=== PATIENT | male | born 1970 | race Caucasian/White ===

== ENCOUNTER 2016-08-20 07:27 | Inpatient (IN) | payer OTHER ==
[2016-08-20] MEDS ORDERED: MORPHINE 2 MG/ML SYRINGE IVP STA (07:41)
[2016-08-20] MEDS ORDERED: SODIUM CHLORIDE 0.9% 1,000 ML IV ONE (07:41)
[2016-08-20] MEDS ORDERED: ONDANSETRON 4 MG/2 ML VIAL IVP STA (07:41)
[2016-08-20] MEDS ORDERED: ONDANSETRON 4 MG/2 ML VIAL ONE (07:43)
[2016-08-20] MEDS ORDERED: MORPHINE 2 MG/ML SYRINGE ONE ×2 (07:44→12:42)
[2016-08-20] MEDS ORDERED: IOPAMIDOL-300 100 ML VIAL IVP ONE (09:00)
[2016-08-20] MEDS ORDERED: ENOXAPARIN 100 MG/ML SYRINGE SUBQ STA (09:28)
[2016-08-20] MEDS ORDERED: NICOTINE 14 MG PATCH TOP STA (09:33)
[2016-08-20] MEDS ORDERED: NICOTINE 14 MG PATCH TOP ONE (09:47)
[2016-08-20] MEDS ORDERED: ENOXAPARIN 120 MG/0.8 ML SYRINGE SUBQ STA (09:49)
[2016-08-20] MEDS ORDERED: oxyCODONE 5 MG TABLET PO PRN (10:24)
[2016-08-20] MEDS ORDERED: ACETAMINOPHEN 325 MG TABLET PO PRN (10:24)
[2016-08-20] MEDS ORDERED: ONDANSETRON ODT 4 MG TABLET TL PRN (10:24)
[2016-08-20] MEDS ORDERED: ONDANSETRON 4 MG/2 ML VIAL IVP PRN (10:24)
[2016-08-20] MEDS: SODIUM CHLORIDE FLUSH 0.9% 10 ML SYRINGE IVP SCH ×2 (12:45→19:16)
[2016-08-20] MEDS: WARFARIN 5 MG TABLET PO SCH (13:54)
[2016-08-20] MEDS: MORPHINE 2 MG/ML SYRINGE IVP PRN ×3 (16:53→21:17)
[2016-08-20] MEDS ORDERED: GABAPENTIN 100 MG CAPSULE PO SCH (21:00)
[2016-08-20] MEDS: FUROSEMIDE 20 MG TABLET PO SCH (21:18)
[2016-08-20] MEDS: SODIUM CHLORIDE FLUSH 0.9% 10 ML SYRINGE IVP PRN (21:18)
[2016-08-21] MEDS: SODIUM CHLORIDE FLUSH 0.9% 10 ML SYRINGE IVP SCH ×3 (00:57→08:18)
[2016-08-21] MEDS: MORPHINE 2 MG/ML SYRINGE IVP PRN ×4 (00:57→08:19)
[2016-08-21] MEDS: SODIUM CHLORIDE FLUSH 0.9% 10 ML SYRINGE IVP PRN ×2 (04:01→06:18)
[2016-08-21] MEDS: FUROSEMIDE 20 MG TABLET PO SCH (08:15)
[2016-08-21] MEDS ORDERED: ENOXAPARIN 120 MG/0.8 ML SYRINGE SUBQ SCH (09:00)
[2016-08-21] MEDS ORDERED: DIGOXIN 125 MCG TABLET PO SCH (09:00)
[2016-08-21] MEDS ORDERED: POLYETHYLENE GLYCOL 3350 17 GM PACKET PO SCH (09:00)
[2016-08-21] MEDS ORDERED: METOPROLOL TARTRATE 50 MG TABLET PO SCH (09:00)
[2016-08-21] MEDS ORDERED: CLOPIDOGREL 75 MG TABLET PO SCH (09:00)
[2016-08-21] MEDS ORDERED: SPIRONOLACTONE 25 MG TABLET PO SCH (09:00)
[2016-08-21] MEDS ORDERED: LOSARTAN 50 MG TABLET PO SCH (09:00)
[2016-08-21] MEDS: WARFARIN 5 MG TABLET PO SCH (13:51)
== END 2016-08-21 13:45 | disposition home or self-care (01) | DRG 176 ==
DX: I26.99 Other pulmonary embolism without acute cor pulmonale (principal); I82.442 Acute embolism and thrombosis of left tibial vein; I82.412 Acute embolism and thrombosis of left femoral vein; F10.10 Alcohol abuse, uncomplicated; D75.89 Other specified diseases of blood and blood-forming organs; G62.9 Polyneuropathy, unspecified; I25.10 Atherosclerotic heart disease of native coronary artery without angina pectoris; F17.200 Nicotine dependence, unspecified, uncomplicated; R91.1 Solitary pulmonary nodule; Z79.01 Long term (current) use of anticoagulants; Z95.5 Presence of coronary angioplasty implant and graft; Z86.711 Personal history of pulmonary embolism; Z86.718 Personal history of other venous thrombosis and embolism; I48.2 Chronic atrial fibrillation; E78.5 Hyperlipidemia, unspecified; Z80.42 Family history of malignant neoplasm of prostate; J44.9 Chronic obstructive pulmonary disease, unspecified

== ENCOUNTER 2016-08-22 09:54 | Outpatient (CLI) | payer OTHER | END 2016-08-22 09:55 | disposition home or self-care (01) | DX: I82.409 Acute embolism and thrombosis of unspecified deep veins of unspecified lower extremity (principal) ==

== ENCOUNTER 2016-08-23 | Outpatient (CLI) | payer OTHER | END 2016-08-23 00:01 | disposition home or self-care (01) | DX: Z53.9 Procedure and treatment not carried out, unspecified reason (principal) ==

== ENCOUNTER 2016-09-20 20:30 | Emergency (ER) | payer OTHER ==
--- NOTE | 2016-09-20 21:44 | ED Physician Documentation ---
History of Present Illness - Stated complaint Stated Complaint: BILAT FT PX - Chief complaint Chief Complaint: Ext Problem - History obtained from History obtained from: Patient, Family - History of Present Illness Timing: Other (8 months) Pain level max: 8 Pain level now: 4 Improved by: rest, putting his feet up Worsened by: walking, standing - Additonal information Additional information: Patient does smoke. States has decreased sensation over B feet. Patient states that his legs do frequently cramp up when he walks. This resolves with rest. Review of Systems Ten Systems: 10 systems reviewed and negative Constitutional: denies: Fever, Chills Nose: denies: Rhinorrhea / runny nose, Congestion GI: denies: Nausea, Vomiting, Diarrhea Skin: denies: Rash Musculoskeletal: denies: Neck pain, Back pain Neurologic: denies: Headache PD PAST MEDICAL HISTORY - Past Medical History Cardiovascular: Hypertension, Coronary artery disease, Deep vein thrombosis, Pulmonary embolism, Atrial fibrillation Respiratory: Other Endocrine/Autoimmune: None GI: None : None HEENT: None Psych: None Musculoskeletal: None - Past Surgical History Past Surgical History: Yes Ortho: Arthroscopic surgery Cardiovascular: Coronary stent - Present Medications Home Medications: Ambulatory Orders Medication Instructions Recorded Confirmed Clopidogrel Bisulfate [Clopidogrel] 75 mg PO DAILY 08/20/16 08/20/16 Digoxin 125 mcg PO DAILY 08/20/16 08/20/16 Furosemide [Lasix] 40 mg PO DAILY 08/20/16 08/20/16 Losartan [Cozaar] 50 mg PO DAILY 08/20/16 08/20/16 Metoprolol Succinate [Toprol Xl] 150 mg PO DAILY 08/20/16 08/20/16 Spironolactone 12.5 mg PO DAILY 08/20/16 08/20/16 Warfarin [Coumadin] 5 mg PO 1400 08/20/16 08/20/16 Enoxaparin [Lovenox] 120 mg SUBQ BID #4 syringe 08/21/16 Gabapentin [Neurontin] 100 mg PO QPM #30 capsule 08/21/16 Warfarin Sodium [Coumadin] 4 mg PO QPM #60 tablet 08/21/16 Hydrocodone/Acetaminophen 1 - 2 each PO Q6H PRN #14 tablet 09/20/16 [Hydrocodon-Acetaminophen 5-325] - Allergies Allergies/Adverse Reactions: Allergies Allergy/AdvReac Type Severity Reaction Status Date / Time No Known Drug Allergies Allergy Verified 08/20/16 07:45 - Social History Does the pt smoke?: Yes Smoking Status: Current every day smoker Does the pt drink ETOH?: Yes Does the pt have substance abuse?: No - POLST Patient has POLST: No PD ED PE NORMAL - Vitals Vital signs reviewed: Yes - General General: Alert and oriented X 3, No acute distress, Well developed/nourished - HEENT HEENT: Moist mucous membranes - Neck Neck: Supple, no meningeal sign - Cardiac Cardiac: RRR - Respiratory Respiratory: No respiratory distress, Clear bilaterally - Derm Derm: Warm and dry - Extremities Extremities: No calf tenderness / cord, Other (1+ bilateral lower extremity edema. Bilateral feet are erythematous, shiny. Normal warmth at this time. ) - Neuro Neuro: Alert and oriented X 3 - Psych Psych: Normal mood, Normal affect Results - Vitals Vitals: Vital Signs - 24 hr 09/20/16 09/20/16 20:32 22:35 Temperature 36.0 C L 36.6 C Heart Rate 95 97 Respiratory 18 18 Rate Blood Pressure 107/69 112/78 O2 Saturation 99 97 Oxygen O2 Source Room air - Labs Labs: Laboratory Tests 09/20/16 09/20/16 09/20/16 22:09 22:32 22:32 WBC 6.6 RBC 3.90 L Hgb 14.2 Hct 41.7 L MCV 107.0 H MCH 36.3 H MCHC 34.0 RDW 16.2 H Plt Count 190 MPV 8.5 Neut # 3.4 Lymph # 2.5 [place] # 0.5 Eos # 0.2 Baso # 0.1 Absolute Nucleated RBC 0.00 Nucleated RBCs 0.0 ESR 17 H PT 70.4 H INR 6.1 H* Sodium Potassium Chloride Carbon Dioxide Anion Gap BUN Creatinine Estimated GFR (MDRD) Glucose Calcium C-Reactive Protein 09/20/16 22:32 WBC RBC Hgb Hct MCV MCH MCHC RDW Plt Count MPV Neut # Lymph # [place] # Eos # Baso # Absolute Nucleated RBC Nucleated RBCs ESR PT INR Sodium 139 Potassium 3.4 L Chloride 102 Carbon Dioxide 30 Anion Gap 7.0 BUN 9 Creatinine 0.9 Estimated GFR (MDRD) 90 Glucose 99 Calcium 8.9 C-Reactive Protein < 1.0 PD MEDICAL DECISION MAKING - ED course Complexity details: reviewed results, re-evaluated patient, considered differential, d/w patient, d/w family ED course: Patient presents to the emergency department with symptoms of claudication and peripheral vascular disease. No evidence of cellulitis or infection. His ankle brachial index bilaterally is approximately 0.8. We will have him follow- up with his doctor for further evaluation of his vascular disease. His INR is found to be supratherapeutic, will hold his warfarin until his next INR check on Wednesday. No evidence of bleeding. Will prescribe a small amount of pain medication for home. Patient counseled regarding signs and symptoms for which I believe and urgent re-evaluation would be necessary. Patient with good understanding of and agreement to plan and is comfortable going home at this time This document was made in part using voice recognition software. While efforts are made to proofread this document, sound alike and grammatical errors may occur. Departure - Departure Disposition: , Self Care Clinical Impression: Peripheral vascular disease, Supratherapeutic INR Condition: Good Instructions: Smoking and PAD, ED PVD Follow-Up: your,doctor within 1 week. [Other] Prescriptions: Hydrocodone/Acetaminophen [Hydrocodon-Acetaminophen 5-325] 1 - 2 each PO Q6H PRN #14 tablet PRN Reason: pain Comments: You need to stop smoking, this is the best thing you can do for your blood vessels. Return if you worsen. You will need further workup of the possible vascular disease in your legs. Do not drink alcohol or drive while on narcotic pain medicine. Note that many narcotic pain relievers also contain tylenol/acetaminophen. Please ensure that your total dose of acetaminophen from all sources does not exceed 3 grams (3000mg) per day. You may constipated on this medication, take a stool softener such as "Colace" twice a day while you are on it. Also recommend a pfzy-okd-ftggixt laxative such as senna or MiraLAX any day that you do not have a bowel movement. If you received narcotic pain medication in the emergency department, do not drive or operate machinery for the next 24 hours. Hold your warfarin until your next INR check on Wednesday. Your INR was 6.1 today.
[2016-09-20] MEDS ORDERED: HYDROcod/ACETAM 5/325 MG TABLET ONE (21:49)
[2016-09-20] MEDS: HYDROcod/ACETAM 5/325 MG TABLET PO STA (21:52)
[2016-09-20 22:35] LABS: BASOPHILS # (AUTO) 0.1 10^3/uL (0.0-0.1); BASOPHILS % (AUTO) 0.9 %; EOSINOPHILS # (AUTO) 0.2 10^3/uL (0.0-0.7); EOSINOPHILS % (AUTO) 2.5 %; HCT - HEMATOCRIT 41.7 % (42.0-52.0); HGB - HEMOGLOBIN 14.2 g/dL (14.0-18.0); LYMPHOCYTES # (AUTO) 2.5 10^3/uL (1.5-3.5); LYMPHOCYTES % (AUTO) 38.3 %; MEAN CORPUSCULAR HEMOGLOBIN 36.3 pg (27.0-31.0); MEAN PLATELET VOLUME 8.5 fL (7.4-11.4); MONOCYTES # (AUTO) 0.5 10^3/uL (0.0-1.0); MONOCYTES % (AUTO) 7.1 %; NEUTROPHILS # (AUTO) 3.4 10^3/uL (1.5-6.6); NEUTROPHILS % (AUTO) 51.2 %; RED CELL DISTRIBUTION WIDTH 16.2 % (12.0-15.0); UNCORRECTED WHITE BLOOD COUNT 6.6 x10^3/uL; WHITE BLOOD COUNT 6.6 x10^3/uL (4.8-10.8)
[2016-09-20 22:39] VITALS: BP 112/78
[2016-09-20 22:54] LABS: BUN - BLOOD UREA NITROGEN 9 mg/dL (6-20); CALCIUM 8.9 mg/dL (8.5-10.3); CARBON DIOXIDE - CO2 30 mmol/L (21-32); CHLORIDE 102 mmol/L (101-111); CREATININE 0.9 mg/dL (0.6-1.2); GFR - MDRD 90 (>89); GLUCOSE 99 mg/dL (70-100); POTASSIUM 3.4 mmol/L (3.5-5.0); SODIUM 139 mmol/L (135-145)
[2016-09-20 23:18] LABS: PT - PROTHROMBIN TIME 70.4 secs (9.9-12.6)
[2016-09-20 23:22] LABS: INR 6.1 (0.8-1.2)
== END 2016-09-20 23:30 | disposition home or self-care (01) ==
LOC: ED 20:30
DX: I73.9 Peripheral vascular disease, unspecified (principal); R79.1 Abnormal coagulation profile; F17.200 Nicotine dependence, unspecified, uncomplicated; I48.91 Unspecified atrial fibrillation; Z79.01 Long term (current) use of anticoagulants; Z86.718 Personal history of other venous thrombosis and embolism; Z86.711 Personal history of pulmonary embolism; I10 Essential (primary) hypertension; I25.10 Atherosclerotic heart disease of native coronary artery without angina pectoris; Z95.5 Presence of coronary angioplasty implant and graft
CPT/HCPCS: 80048; 85025; 85610; 85651; 86140; 99283; 99284; A9270

== ENCOUNTER 2017-08-14 10:19 | Emergency (ER) | payer BC, OTHER ==
[2017-08-14 10:49] LABS: BASOPHILS # (AUTO) 0.1 10^3/uL (0.0-0.1); BASOPHILS % (AUTO) 0.7 %; EOSINOPHILS # (AUTO) 0.1 10^3/uL (0.0-0.7); EOSINOPHILS % (AUTO) 1.9 %; HGB - HEMOGLOBIN 15.3 g/dL (14.0-18.0); LYMPHOCYTES % (AUTO) 27.6 %; MEAN CORPUSCULAR HGB CONC 34.8 g/dL (32.0-36.0); MEAN CORPUSCULAR VOLUME 109.2 fL (80.0-94.0); MEAN PLATELET VOLUME 8.3 fL (7.4-11.4); MONOCYTES # (AUTO) 0.5 10^3/uL (0.0-1.0); NEUTROPHILS # (AUTO) 4.7 10^3/uL (1.5-6.6); NEUTROPHILS % (AUTO) 62.8 %; PLT - PLATELET COUNT 179 10^3/uL (130-450); RED BLOOD COUNT 4.03 10^6/uL (4.70-6.10); WHITE BLOOD COUNT 7.4 x10^3/uL (4.8-10.8)
[2017-08-14 11:01] LABS: ALBUMIN 4.1 g/dL (3.2-5.5); ALBUMIN/GLOBULIN RATIO 1.1 (1.0-2.2); BILIRUBIN,TOTAL 0.6 mg/dL (0.2-1.0); CALCIUM 8.8 mg/dL (8.5-10.3); CREATININE 0.9 mg/dL (0.6-1.2); TOTAL PROTEIN 7.7 g/dL (6.7-8.2)
--- NOTE | 2017-08-14 12:37 | ED Physician Documentation ---
History of Present Illness - Stated complaint Stated Complaint: INCREASE HR - Chief complaint Chief Complaint: Cardiac - History obtained from History obtained from: Patient, Family - History of Present Illness Timing: How many weeks ago (1) - Additonal information Additional information: 46-year-old male with history of chronic atrial fibrillation after pulmonary embolism has developed increasing lower extremity swelling and increasing dyspnea. He has had a Holter monitor on and has sent his monitor in for evaluation and he got a call from Dr. Yeni amador asking him to come into the emergency department for evaluation because of some persistent high readings of rate.The patient himself feels that he usually has a heart rate between 110 and 130 and he does not feel much different than his usual. On closer questioning from history the patient has had URI that was treated with antibiotic 2 weeks ago he finished 3 days of the antibiotic and felt that his infection was resolved. He also notes that he has had an increase in the lower extremities swelling his abdomen feels somewhat swollen and he is more short of breath on exertion than usual. 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 Review of Systems Constitutional: denies: Fever Eyes: denies: Decreased vision Ears: denies: Ear pain Nose: reports: Rhinorrhea / runny nose, Congestion Throat: denies: Sore throat Cardiac: reports: Chest pain / pressure, Palpitations Respiratory: reports: Dyspnea, Cough GI: denies: Abdominal Pain, Nausea, Vomiting, Constipation, Diarrhea : denies: Dysuria, Frequency Skin: denies: Rash Musculoskeletal: reports: Extremity swelling. denies: Neck pain, Back pain, Extremity pain Neurologic: denies: Generalized weakness, Focal weakness, Numbness PD PAST MEDICAL HISTORY - Past Medical History Cardiovascular: Hypertension, Coronary artery disease, Deep vein thrombosis, Pulmonary embolism, Atrial fibrillation Respiratory: Other Endocrine/Autoimmune: None GI: None : None HEENT: None Psych: None Musculoskeletal: None - Past Surgical History Past Surgical History: Yes Ortho: Arthroscopic surgery Cardiovascular: Coronary stent - Present Medications Home Medications: Ambulatory Orders Medication Instructions Recorded Confirmed Clopidogrel Bisulfate [Clopidogrel] 75 mg PO DAILY 08/20/16 08/20/16 Digoxin 125 mcg PO DAILY 08/20/16 08/20/16 Furosemide [Lasix] 40 mg PO DAILY 08/20/16 08/20/16 Losartan [Cozaar] 50 mg PO DAILY 08/20/16 08/20/16 Metoprolol Succinate [Toprol Xl] 150 mg PO DAILY 08/20/16 08/20/16 Spironolactone 12.5 mg PO DAILY 08/20/16 08/20/16 Warfarin [Coumadin] 5 mg PO 1400 08/20/16 08/20/16 Enoxaparin [Lovenox] 120 mg SUBQ BID #4 syringe 08/21/16 Gabapentin [Neurontin] 100 mg PO QPM #30 capsule 08/21/16 Warfarin Sodium [Coumadin] 4 mg PO QPM #60 tablet 08/21/16 Hydrocodone/Acetaminophen 1 - 2 each PO Q6H PRN #14 tablet 09/20/16 [Hydrocodon-Acetaminophen 5-325] - Allergies Allergies/Adverse Reactions: Allergies Allergy/AdvReac Type Severity Reaction Status Date / Time No Known Drug Allergies Allergy Verified 08/14/17 10:26 - Social History Does the pt smoke?: Yes Smoking Status: Current every day smoker Does the pt drink ETOH?: Yes Does the pt have substance abuse?: No - POLST Patient has POLST: No PD ED PE NORMAL - Vitals Vital signs reviewed: Yes (tachy and hypertensive) - General General: Alert and oriented X 3, No acute distress, Well developed/nourished - HEENT HEENT: Atraumatic, PERRL, EOMI, Other (There is erythema bilaterlly with retained landmarks. ) - Neck Neck: Supple, no meningeal sign, No bony TTP - Cardiac Cardiac: No murmur, Other (tachy and irregular) - Respiratory Respiratory: No respiratory distress, Other (diminished breath sounds bilaterally ) - Abdomen Abdomen: Soft, Non tender - Derm Derm: Normal color, Warm and dry, No rash - Extremities Extremities: No deformity. No: Other (trace edema bilaterally without cellulitis.) - Neuro Neuro: Alert and oriented X 3, No motor deficit, No sensory deficit, Normal speech Eye Opening: Spontaneous Motor: Obeys Commands Verbal: Oriented GCS Score: 15 - Psych Psych: Normal affect Results - Vitals Vitals: Vital Signs - 24 hr 08/14/17 08/14/17 08/14/17 10:23 12:26 13:26 Temperature 35.7 C L Heart Rate 128 H 119 H 119 H Respiratory 20 18 21 Rate Blood Pressure 143/129 H 103/75 115/93 H O2 Saturation 97 97 98 08/14/17 08/14/17 08/14/17 13:45 13:46 13:50 Temperature Heart Rate 116 H 115 H 108 H Respiratory 16 20 16 Rate Blood Pressure 107/68 107/68 109/82 H O2 Saturation 99 99 99 08/14/17 08/14/17 08/14/17 13:55 14:23 14:30 Temperature Heart Rate 115 H 100 98 Respiratory 18 18 Rate Blood Pressure 112/63 106/86 H 101/83 H O2 Saturation 98 98 08/14/17 14:49 Temperature Heart Rate 85 Respiratory 20 Rate Blood Pressure 94/68 O2 Saturation 95 Oxygen O2 Source Room air - EKG (time done) 1029 Rate: Rate (enter#) (136) Rhythm: Atrial fibrillation Intervals: Prolonged QT Compare to prior EKG: Changed from prior EKG (SPT2-17 rate has increased.) Computer interpretation: Agree with computer - Labs Labs: Laboratory Tests 08/14/17 08/14/17 08/14/17 10:39 10:39 10:39 WBC 7.4 RBC 4.03 L Hgb 15.3 Hct 44.1 MCV 109.2 H MCH 38.0 H MCHC 34.8 RDW 17.0 H Plt Count 179 MPV 8.3 Neut # 4.7 Lymph # 2.0 [place] # 0.5 Eos # 0.1 Baso # 0.1 Absolute Nucleated RBC 0.00 Nucleated RBC % 0.0 PT INR Sodium 138 Potassium 3.4 L Chloride 99 L Carbon Dioxide 24 Anion Gap 15.0 H BUN 10 Creatinine 0.9 Estimated GFR (MDRD) 90 Glucose 140 H Calcium 8.8 Total Bilirubin 0.6 AST 23 ALT 26 Alkaline Phosphatase 70 Troponin I < 0.04 B-Natriuretic Peptide Total Protein 7.7 Albumin 4.1 Globulin 3.6 Albumin/Globulin Ratio 1.1 Lipase 45 08/14/17 08/14/17 10:39 10:39 WBC RBC Hgb Hct MCV MCH MCHC RDW Plt Count MPV Neut # Lymph # [place] # Eos # Baso # Absolute Nucleated RBC Nucleated RBC % PT 23.7 H INR 2.2 H Sodium Potassium Chloride Carbon Dioxide Anion Gap BUN Creatinine Estimated GFR (MDRD) Glucose Calcium Total Bilirubin AST ALT Alkaline Phosphatase Troponin I B-Natriuretic Peptide 354 H Total Protein Albumin Globulin Albumin/Globulin Ratio Lipase - Rads (name of study) 2 view chest Radiology: Prelim report reviewed (Impression: 1. No acute cardiopulmonary abnormality. 2. Old granulomatous disease with left superior segment lower lobe granuloma unchanged.), EMP read indepedently, See rad report Procedures - IVC sono (time) 1230 Bedside IVC sono: IVC measures (cm) (2.11), IVC collapsed c insp (cm) (1.93), Collapsibility index (.085), High CVP, Fluid overload PD MEDICAL DECISION MAKING - ED course Complexity details: reviewed old records, reviewed results, re-evaluated patient , considered differential, d/w patient, d/w family ED course: 46-year-old male with a history of chronic atrial fibrillation and pulmonary emboli has developed increased shortness of breath and tachycardia. 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 He has symptoms of orthopnea and exertional dyspnea worse than usual. Here in the emergency department today x-ray examination of the lungs shows cardiomegaly but without overt fluid and interrogation of the inferior vena cava reveals a plethoric vein and he is administered Lasix. He does have improvement in his symptoms but continues to have a heart rate of 130. On detailed history he has stopped his aldactone for gynecomastia and he has run out of digitoxin about a week ago. He has been taking his metoprolol 150mg daily. He has decreased his coumadin because of an INR of over 5 and he has not had a check since. Checks out OK today. Dr. Soto is health consultant for Dr. Davey and he recommends administration of amiorderone 150mg IV and oral at 200mg bid with a reduction in coumadin dose by 30%. He recommends hospitalization to do this and recommends bolus and oral if he refuses. The patient agrees to hospitalization but is struggling with tobacco and he is anxious. He is given ativan 1mg IVP. Departure - Departure Clinical Impression: Persistent atrial fibrillation with RVR Congestive heart failure Qualifiers: Congestive heart failure type: systolic Congestive heart failure chronicity: acute on chronic Qualified Code(s): I50.23 - Acute on chronic systolic ( congestive) heart failure
[2017-08-14] MEDS ORDERED: FUROSEMIDE 40 MG/4 ML VIAL IVP STA (12:38)
--- NOTE | 2017-08-14 13:16 | XRAY Report ---
EXAM: CHEST RADIOGRAPHY EXAM DATE: 08/14/2017 12:59 PM. CLINICAL HISTORY: Rales bilat. COMPARISON: CT chest 08/20/2016. TECHNIQUE: 2 views. FINDINGS: Lungs/Pleura: Again demonstrated is a dense nodule in the left lower lobe superior segment which appe ars unchanged. No consolidative process or pleural effusion. Lung volumes are symmetric. Mediastinum: Heart and mediastinal contours are unremarkable. Other: None. IMPRESSION: 1. No acute cardiopulmonary abnormality. 2. Old granulomatous disease with left superior segment lower lobe granuloma unchanged. [facility] Referring Provider Line: [phone] SITE ID: [id number]
[2017-08-14] MEDS ORDERED: GABAPENTIN 100 MG CAPSULE PO STA (13:22)
[2017-08-14] MEDS ORDERED: diltiaZEM INJ 5 MG/ML VIAL IVP STA ×2 (13:36→14:05)
[2017-08-14 14:45] LABS: INR 2.2 (0.8-1.2); PT - PROTHROMBIN TIME 23.7 secs (9.9-12.6)
[2017-08-14] MEDS ORDERED: AMIODARONE 150 MG/100 ML 100 ML IV ONE (15:31)
[2017-08-14] MEDS ORDERED: LORazepam 2 MG/ML VIAL IVP STA (15:49)
[2017-08-14] MEDS ORDERED: AMIODARONE 360 MG/200 ML 200 ML IV ONE (16:11)
[2017-08-14 17:27] VITALS: BP 115/87
--- NOTE | 2017-08-14 17:36 | ED Physician Documentation ---
PD HPI CHEST PAIN - Stated complaint Stated Complaint: INCREASE HR - Chief complaint Chief Complaint: Cardiac PD PAST MEDICAL HISTORY - Past Medical History Cardiovascular: Hypertension, Coronary artery disease, Deep vein thrombosis, Pulmonary embolism, Atrial fibrillation Respiratory: Other Endocrine/Autoimmune: None GI: None : None HEENT: None Psych: None Musculoskeletal: None - Past Surgical History Past Surgical History: Yes Ortho: Arthroscopic surgery Cardiovascular: Coronary stent - Present Medications Home Medications: Ambulatory Orders Medication Instructions Recorded Confirmed Digoxin 125 mcg PO DAILY 08/20/16 08/14/17 Furosemide [Lasix] 60 mg PO DAILY 08/20/16 08/14/17 Losartan [Cozaar] 50 mg PO DAILY 08/20/16 08/14/17 Metoprolol Succinate [Toprol Xl] 200 mg PO DAILY 08/20/16 08/14/17 Warfarin [Coumadin] 5 mg PO DAILY 08/20/16 08/14/17 Amiodarone HCl 100 mg PO DAILY #14 tablet 08/14/17 Amiodarone HCl 200 mg PO BID #14 tablet 08/14/17 Amiodarone [Pacerone] 200 mg PO DAILY #7 tablet 08/14/17 Aspirin 81 mg PO DAILY 08/14/17 08/14/17 Atorvastatin Calcium 40 mg PO QPM 08/14/17 08/14/17 Gabapentin 900 mg PO QID 08/14/17 08/14/17 Warfarin [Coumadin] 1 mg PO DAILY 08/14/17 08/14/17 - Allergies Allergies/Adverse Reactions: Allergies Allergy/AdvReac Type Severity Reaction Status Date / Time No Known Drug Allergies Allergy Verified 08/14/17 10:26 - Social History Does the pt smoke?: Yes Smoking Status: Current every day smoker Does the pt drink ETOH?: Yes Does the pt have substance abuse?: No - POLST Patient has POLST: No Results - Vitals Vitals: Vital Signs - 24 hr 08/14/17 08/14/17 08/14/17 10:23 12:26 13:26 Temperature 35.7 C L Heart Rate 128 H 119 H 119 H Respiratory 20 18 21 Rate Blood Pressure 143/129 H 103/75 115/93 H O2 Saturation 97 97 98 08/14/17 08/14/17 08/14/17 13:45 13:46 13:50 Temperature Heart Rate 116 H 115 H 108 H Respiratory 16 20 16 Rate Blood Pressure 107/68 107/68 109/82 H O2 Saturation 99 99 99 08/14/17 08/14/17 08/14/17 13:55 14:23 14:30 Temperature Heart Rate 115 H 100 98 Respiratory 18 18 Rate Blood Pressure 112/63 106/86 H 101/83 H O2 Saturation 98 98 08/14/17 08/14/17 08/14/17 14:49 15:58 17:26 Temperature Heart Rate 85 91 90 Respiratory 20 18 16 Rate Blood Pressure 94/68 96/71 115/87 H O2 Saturation 95 99 98 Oxygen O2 Source Room air - Labs Labs: Laboratory Tests 08/14/17 08/14/17 08/14/17 10:39 10:39 10:39 WBC 7.4 RBC 4.03 L Hgb 15.3 Hct 44.1 MCV 109.2 H MCH 38.0 H MCHC 34.8 RDW 17.0 H Plt Count 179 MPV 8.3 Neut # 4.7 Lymph # 2.0 [place] # 0.5 Eos # 0.1 Baso # 0.1 Absolute Nucleated RBC 0.00 Nucleated RBC % 0.0 PT INR Sodium 138 Potassium 3.4 L Chloride 99 L Carbon Dioxide 24 Anion Gap 15.0 H BUN 10 Creatinine 0.9 Estimated GFR (MDRD) 90 Glucose 140 H Calcium 8.8 Total Bilirubin 0.6 AST 23 ALT 26 Alkaline Phosphatase 70 Troponin I < 0.04 B-Natriuretic Peptide Total Protein 7.7 Albumin 4.1 Globulin 3.6 Albumin/Globulin Ratio 1.1 Lipase 45 08/14/17 08/14/17 10:39 10:39 WBC RBC Hgb Hct MCV MCH MCHC RDW Plt Count MPV Neut # Lymph # [place] # Eos # Baso # Absolute Nucleated RBC Nucleated RBC % PT 23.7 H INR 2.2 H Sodium Potassium Chloride Carbon Dioxide Anion Gap BUN Creatinine Estimated GFR (MDRD) Glucose Calcium Total Bilirubin AST ALT Alkaline Phosphatase Troponin I B-Natriuretic Peptide 354 H Total Protein Albumin Globulin Albumin/Globulin Ratio Lipase PD MEDICAL DECISION MAKING - ED course ED course: See Dr. Ernst's note, also Dr. Ruiz's consultation. Briefly this is a gentleman with atrial fibrillation who is now rate controlled after amiodarone and a single dose of diltiazem. Dr. Ruiz felt he could be home going home and recommended that he get amiodarone, 200 mg twice a day for 7 days, then 200 mg once a day for a week, then 100 mg once a day. Patient is comfortable with this plan and will follow up with his drafter. Departure - Departure Disposition: 01 Home, Self Care Clinical Impression: Persistent atrial fibrillation with RVR Congestive heart failure Qualifiers: Congestive heart failure type: systolic Congestive heart failure chronicity: acute on chronic Qualified Code(s): I50.23 - Acute on chronic systolic ( congestive) heart failure Condition: Good Record reviewed to determine appropriate education?: Yes Instructions: Atrial Fibrillation Dc, ED CHF General Prescriptions: Amiodarone [Pacerone] 200 mg PO DAILY #7 tablet Amiodarone HCl 100 mg PO DAILY #14 tablet Amiodarone HCl 200 mg PO BID #14 tablet Comments: Return if worse. You are to take amiodarone, 200 mg twice a day for the first week, then 200 mg once a day for a week, then 100 mg once a day. Somewhere around 1-2 weeks from now follow-up with your drafter. STOP YOUR DIGOXIN Discharge Date/Time: 08/14/17 17:57
--- NOTE | 2017-08-14 19:28 | CONSULTATION NOTE ---
DATE OF SERVICE: 08/14/2017 Physician: Yuly Read MD LOCATION: Emergency room. HISTORY OF PRESENT ILLNESS: This is a 46-year-old white male with a history of alcohol abuse, cigarette smoking, multiple pulmonary emboli on anticoagulation, coronary disease with a stent, chronic atrial fibrillation. The patient was advised to come to the emergency room by the refrigerating machine operator covering physician after a Holter monitor patch which he wore for 4 days and turned in was read to have tachycardia throughout its course with heart rates between 135 and 258. The patient states that he lately always has a heart rate of approximately 130 and is used to it. He ran out of his digoxin approximately 4 days ago and has not been taking any. The details about wearing the Holter patch are not available to me as far as who ordered it and the plan or workup. He used to see a refrigerating machine operator at the [facility] of a [facility] in the [facility], but he moved with his girlfriend to [facility] 1 year ago and they have seen a refrigerating machine operator once more locally by the name of Dr. Hood. Since he was brought to the emergency room and given an IV amiodarone bolus, he states that the palpitations are gone and there has been no history of lightheadedness or syncope.The patient has chronic leg edema and chronic discoloration of his shins. The patient denies orthopnea, dyspnea on exertion or PND. 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 There has been no recent fever, cough, sputum production, nausea, vomiting or diarrhea. PAST MEDICAL HISTORY: Coronary disease with stenting on Plavix in the past, recurrent pulmonary emboli using warfarin, chronic atrial fibrillation on metoprolol, digoxin and warfarin , alcohol abuse history with elevated MCV, tobacco use history with COPD according to the patient. REVIEW OF SYSTEMS: A comprehensive review of systems was performed and the positives are as above, the rest are negative. MEDICATIONS AT HOME 1. Baby aspirin daily. 2. Lipitor 40 mg daily. 3. Digoxin 125 mcg daily (none for about 4 days). 4. Lasix 60 mg daily. 5. Gabapentin 900 mg q.i.d. 6. Cozaar 50 mg daily. 7. Toprol-XL 200 mg daily. 8. Warfarin; doses are alternating between 5 and 1 mg daily. ALLERGIES: NONE. SOCIAL HISTORY: The patient smokes up to a pack a day. The patient drinks up to an entire bottle of alcohol daily. He denies any illicit drug use. He lives with his girlfriend. 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 FAMILY HISTORY: No inherited diseases. PHYSICAL EXAMINATION: GENERAL: A middle aged-appearing white male with the smell of alcohol in his breath and he is somewhat disheveled. VITAL SIGNS: Blood pressure 115/87. Pulse is 90-100, in atrial fibrillation with no PVCs noted. Afebrile. Room air saturation 99%. HEENT: Poor oral dentition. Moist oral mucosa. NECK: Positive JVD in a vertical position. CHEST: Increased expiratory phase and scattered wheezes. There are no rales or rhonchi. HEART: Sounds are normal, except irregular. There is no audible murmur. There is no gallop or heave. ABDOMEN: Soft, mildly distended. Positive bowel sounds. Possible hepatomegaly and I cannot rule out ascites. EXTREMITIES: Venous stasis changes of the shins bilaterally, 1+ edema to the knees. NEUROLOGIC: Grossly intact. There is no asterixis. LABORATORY DATA: Sodium 138, potassium 3.4, BUN 10, creatinine 0.9. AST and ALT are normal. Troponin not detectable. BNP 354. INR is 2.2. White blood count 7.4 with a normal differential, hemoglobin 15.3 with an MCV of 109, platelet count 179, RDW up at 17. CHEST X-RAY: Old granulomatous disease in the left lung field. Heart size is normal. EKG: Atrial fibrillation with a rapid rate of 136, nonspecific ST-T changes diffusely. IMPRESSION/DIAGNOSES 1. Atrial fibrillation with rapid ventricular response. History of palpitations and longstanding tachycardia, according to the patient. 2. History of congestive heart failure, according to the patient. 3. Recurrent pulmonary emboli, on Coumadin with a therapeutic INR 4. Alcohol abuse with elevated MCV, suggesting chronicity. 5. Tobacco abuse with evidence of chronic obstructive pulmonary disease on exam 6. History of coronary artery disease with stenting. PLAN: The patient received an iv Amiodarone bolus, which has already achieved rate control with heart rates in the 90s to 100s. The patient feels less palpitations. According to Dr. Ernst, who reached out to the refrigerating machine operator covering Dr. Hood and spoke to Dr. Pathak, he advised this amiodarone IV bolus and then to start amiodarone 200 mg p.o. b.i.d. for 7 days. I agree with this plan. The patient is eager to be discharged, and with his current rate control and him feeling stable, this is an adequate plan. Would recommend stopping the digoxin, which the patient has already done by virtue of running out of it approximately 4 days ago. Continue with his other medications for cardiomyopathy and for anticoagulation. Follow up with his refrigerating machine operator within the next 1 week for further management of his heart rate. He was advised that if there are side effects from new po Amiodarone including lightheadedness , that he should return back to the emergency room for further management or reach out to his established refrigerating machine operator. Further management such as new ischemia workup and medication adjustment should be done with his refrigerating machine operator. Smoking cessation and alcohol abuse cessation are recommended. Thank you for allowing me to participate in the care of this patient. TD: 08/14/2017 19:27 IGLESIA
== END 2017-08-14 17:57 | disposition home or self-care (01) ==
LOC: ED 10:19
DX: I48.1 Persistent atrial fibrillation (principal); Z79.01 Long term (current) use of anticoagulants; I11.0 Hypertensive heart disease with heart failure; I50.23 Acute on chronic systolic (congestive) heart failure; I25.10 Atherosclerotic heart disease of native coronary artery without angina pectoris; Z86.718 Personal history of other venous thrombosis and embolism; Z86.711 Personal history of pulmonary embolism; F17.200 Nicotine dependence, unspecified, uncomplicated; N62 Hypertrophy of breast; Z79.82 Long term (current) use of aspirin; F10.10 Alcohol abuse, uncomplicated
CPT/HCPCS: 36415; 71046; 80053; 83690; 83880; 84484; 85025; 85610; 93005; 96365; 96375; 96376; 99284; J0282; J2060

== ENCOUNTER 2017-09-05 09:13 | Outpatient (CLI) | payer OTHER | END 2017-09-05 09:14 | disposition home or self-care (01) | LOC: RT 09:13 | PROVIDERS: ATTEND Internal Medicine Cardiovascular Disease | DX: R06.02 Shortness of breath (principal) | CPT/HCPCS: 94010; 94727; 94729 ==

== ENCOUNTER 2017-10-15 09:41 | Emergency (ER) | payer OTHER ==
--- NOTE | 2017-10-15 10:40 | ED Physician Documentation ---
History of Present Illness - Stated complaint Stated Complaint: R LEG PAIN - Chief complaint Chief Complaint: Ext Problem - Additonal information Additional information: hx from pt 47 male hx DVT PE and a fib on coumadin and amiodarone among others states his HR is always about 130 even when he is well to ED today because he has RLE pain and swelling and is concerned about another DVT no injury no CP SOA Review of Systems Constitutional: denies: Fever, Chills Cardiac: denies: Chest pain / pressure Respiratory: denies: Dyspnea Musculoskeletal: reports: Extremity pain, Extremity swelling Endocrine: reports: Easy bruising / bleeding (coumadin) PD PAST MEDICAL HISTORY - Past Medical History Cardiovascular: Hypertension, Coronary artery disease, Deep vein thrombosis, Pulmonary embolism, Atrial fibrillation Respiratory: Other Endocrine/Autoimmune: None GI: None : None HEENT: None Psych: None Musculoskeletal: None - Past Surgical History Past Surgical History: Yes Ortho: Arthroscopic surgery Cardiovascular: Coronary stent - Present Medications Home Medications: Ambulatory Orders Medication Instructions Recorded Confirmed Losartan [Cozaar] 50 mg PO DAILY 08/20/16 08/14/17 Metoprolol Succinate [Toprol Xl] 200 mg PO DAILY 08/20/16 08/14/17 Amiodarone HCl 100 mg PO DAILY #14 tablet 08/14/17 Amiodarone HCl 200 mg PO BID #14 tablet 08/14/17 Amiodarone [Pacerone] 200 mg PO DAILY #7 tablet 08/14/17 Aspirin 81 mg PO DAILY 08/14/17 08/14/17 Atorvastatin Calcium 40 mg PO QPM 08/14/17 08/14/17 Gabapentin 900 mg PO QID 08/14/17 08/14/17 Cephalexin [Keflex] 500 mg PO Q6H #28 capsule 10/15/17 Oxycodone HCl/Acetaminophen 1 each PO Q6HR PRN #6 tablet 10/15/17 [Percocet 5-325 mg Tablet] Potassium Chloride 10/15/17 Rivaroxaban [Xarelto] 10/15/17 - Allergies Allergies/Adverse Reactions: Allergies Allergy/AdvReac Type Severity Reaction Status Date / Time No Known Drug Allergies Allergy Verified 10/15/17 09:58 - Social History Does the pt smoke?: Yes Smoking Status: Current every day smoker Does the pt drink ETOH?: Yes Does the pt have substance abuse?: No - POLST Patient has POLST: No PD ED PE NORMAL - Vitals Vital signs reviewed: Yes - Neck Neck: Supple, no meningeal sign - Cardiac Cardiac: RRR - Respiratory Respiratory: No respiratory distress, Clear bilaterally - Abdomen Abdomen: Soft, Non tender - Derm Derm: Normal color - Extremities Extremities: Other (marked edema and erythema and TTP RLE, some TTP medial thigh as well, MSV intact) - Neuro Neuro: Alert and oriented X 3 Eye Opening: Spontaneous Motor: Obeys Commands Verbal: Oriented GCS Score: 15 Results - Vitals Vitals: Vital Signs - 24 hr 10/15/17 10/15/17 09:48 12:22 Temperature 37.1 C Heart Rate 127 H 114 H Respiratory 15 19 Rate Blood Pressure 97/73 97/63 O2 Saturation 98 96 Oxygen O2 Source Room air - Labs Labs: Laboratory Tests 10/15/17 10:12 Whole Blood INR 1.5 H - Rads (name of study) RLE doppler Radiology: See rad report (no DVT) PD MEDICAL DECISION MAKING - ED course ED course: on xarelto and doppler neg leg is red and warm too so could also be infection rather than intially concern ED for DVT started keflex tachycardia was noted - pt states is has that HR every day and it is now new or related to his new swollen leg and he is on meds for same - so not further pursued other than to suggest he discuss med adjustment with his electrical line splicer also carefully explained to pt that small distal DVTs can be hard to see on doppler so if sx persist after trial tx with ab he should see him PMD for consideration of a rpt sono pt stating leg huirts severely - better not to take NSAIDS on xarelto - no WMPM RENUKA alert - so rx limited number of percocet Departure - Departure Disposition: Home, Self Care Clinical Impression: Cellulitis Qualifiers: Site of cellulitis: extremity Site of cellulitis of extremity: lower extremity Laterality: right Qualified Code(s): L03.115 - Cellulitis of right lower limb Condition: Good Instructions: ED Infec Skin Cellulitis Follow-Up: Gabrielle Brandt MD [Primary Care Provider] - Prescriptions: Oxycodone HCl/Acetaminophen [Percocet 5-325 mg Tablet] 1 each PO Q6HR PRN #6 tablet PRN Reason: Severe Pain Cephalexin [Keflex] 500 mg PO Q6H #28 capsule Comments: The doppler was negative for a blood clot And you already on xarelto. But it is more red and swollen than the other so another possible cause would be infection - so I have prescribed antibiotics I also prescribed medication for the pain until the antibiotics take effect Recommend elevation, warm compresses and compression stocking to decrease the swelling Your heart is fast again - you tell me this is not new or related to your ER visit today - and it doesn't seem to be bothering you - but you need to speak to your electrical line splicer about adjusting your medications for better rate control Please follow up with your PMD for a recheck of your leg on Wednesday And return to see me in the ER if worse over the weekend - i will be here both Wednesday and Wednesday until 5 PM
--- NOTE | 2017-10-15 11:34 | Ultrasound Report ---
RIGHT LOWER EXTREMITY VENOUS SONOGRAM: 10/15/2017 HISTORY: Pain and swelling right leg. The patient on blood thinners. TECHNIQUE: Real-time scanning by the blood donor recruiter supervisor with saved static images reviewed. FINDINGS: The right common femoral, deep femoral, femoral and popliteal veins demonstrate normal phasicity, compressibility, and augmentation. Normal flow by Doppler. No intraluminal clot is seen. Limited imaging of the posterior tibial and peroneal veins due to swelling. In an area of palpable pain/lump on the anterior tibia, there is a small hypoechoic area, possibly a small amount of fluid, 2.9 x 1.3 x 0.3 cm, of uncertain significance. IMPRESSION: NEGATIVE FOR DEEP VENOUS THROMBOSIS, RIGHT LOWER EXTREMITY. TD: 10/15/2017 11:33
[2017-10-15 12:23] VITALS: BP 97/63
[2017-10-15] MEDS ORDERED: cephALEXin 250 MG CAPSULE PO STA (12:55)
[2017-10-15] MEDS ORDERED: oxyCODONE 5 MG TABLET PO STA (12:55)
== END 2017-10-15 13:05 | disposition home or self-care (01) ==
LOC: ED 09:41
DX: M79.604 Pain in right leg (principal); L03.115 Cellulitis of right lower limb; Z86.718 Personal history of other venous thrombosis and embolism; Z79.01 Long term (current) use of anticoagulants; Z79.82 Long term (current) use of aspirin; F17.200 Nicotine dependence, unspecified, uncomplicated; I10 Essential (primary) hypertension; R00.0 Tachycardia, unspecified
CPT/HCPCS: 85610; 93971; 99283; A9270

== ENCOUNTER 2018-05-02 08:55 | Emergency (ER) | payer OTHER ==
--- NOTE | 2018-05-02 10:10 | ED Physician Documentation ---
History of Present Illness - Stated complaint Stated Complaint: VISION CHANGE/RINGING IN EARS - Chief complaint Chief Complaint: General - Additonal information Additional information: hx from pt several complaint he is on torsemide, has been very thirsty,, drinking a lot of gatorade and water, urinating freq his vision is blurry (no black, no a curtain, not spots, just hard to focus) his ears are ringing he is coughing and he has a boil to the region no fever no NVD FSBS in triage nearly 400 no known dm or hx of same Review of Systems Constitutional: denies: Fever, Chills Eyes: reports: Other (blurry vision) Ears: reports: Tinnitus/ringing Throat: denies: Sore throat Cardiac: denies: Chest pain / pressure Respiratory: denies: Dyspnea GI: denies: Abdominal Pain, Nausea, Vomiting, Diarrhea Neurologic: reports: Generalized weakness Endocrine: reports: Polydypsia, Polyuria, Easy bruising / bleeding (blood thinners) Immunocompromised: denies: Immunocompromised PD PAST MEDICAL HISTORY - Past Medical History Cardiovascular: Hypertension, Coronary artery disease, Deep vein thrombosis, Pulmonary embolism, Atrial fibrillation Respiratory: Other Endocrine/Autoimmune: None GI: None : None HEENT: None Psych: None Musculoskeletal: None - Past Surgical History Past Surgical History: Yes Ortho: Arthroscopic surgery Cardiovascular: Coronary stent - Present Medications Home Medications: Ambulatory Orders Medication Instructions Recorded Confirmed Metoprolol Succinate [Toprol Xl] 200 mg PO DAILY 08/20/16 08/14/17 Amiodarone HCl 200 mg PO BID #14 tablet 08/14/17 Aspirin 81 mg PO DAILY 08/14/17 08/14/17 Atorvastatin Calcium 40 mg PO QPM 08/14/17 08/14/17 Gabapentin 900 mg PO QID 08/14/17 08/14/17 Potassium Chloride 10/15/17 Rivaroxaban [Xarelto] 10/15/17 Doxycycline Hyclate 100 mg PO BID #14 capsule 05/02/18 Torsemide 10 mg PO 05/02/18 metFORMIN [Glucophage] 500 mg PO BIDWM #60 tablet 05/02/18 - Allergies Allergies/Adverse Reactions: Allergies Allergy/AdvReac Type Severity Reaction Status Date / Time No Known Drug Allergies Allergy Verified 10/15/17 09:58 - Social History Does the pt smoke?: Yes Smoking Status: Current every day smoker Does the pt drink ETOH?: Yes Does the pt have substance abuse?: No - POLST Patient has POLST: No PD ED PE NORMAL - Vitals Vital signs reviewed: Yes - HEENT HEENT: PERRL - Neck Neck: Supple, no meningeal sign - Cardiac Cardiac: RRR - Respiratory Respiratory: No respiratory distress, Clear bilaterally - Abdomen Abdomen: Soft, Non tender - Male Male : Other (small area indurationwith spont drainage of cloudy blood from scrotum, no drainable absecess, cx sent) - Derm Derm: Normal color - Neuro Neuro: Alert and oriented X 3 Eye Opening: Spontaneous Motor: Obeys Commands Verbal: Oriented GCS Score: 15 Results - Vitals Vitals: Vital Signs - 24 hr 05/02/18 05/02/18 09:05 12:26 Temperature 36.4 C L Heart Rate 82 77 Respiratory 14 18 Rate Blood Pressure 146/91 H 122/95 H O2 Saturation 100 98 Oxygen O2 Source Room air - Labs Labs: Laboratory Tests 05/02/18 05/02/18 05/02/18 10:45 10:45 10:45 WBC 7.3 RBC 4.24 L Hgb 15.1 Hct 42.0 MCV 99.1 H MCH 35.7 H MCHC 36.1 H RDW 14.2 Plt Count 172 MPV 9.3 Neut # (Auto) 5.6 Lymph # (Auto) 1.2 L [place] # (Auto) 0.4 Eos # (Auto) 0.0 Baso # (Auto) 0.1 Absolute Nucleated RBC 0.01 Nucleated RBC % 0.1 VBG pH VBG pCO2 VBG pO2 VBG HCO3 VBG Total CO2 VBG O2 Saturation VBG Base Excess Sodium 130 L Potassium 3.1 L Chloride 85 L Carbon Dioxide 26 Anion Gap 19.0 H BUN 13 Creatinine 1.1 Estimated GFR (MDRD) 71 L Glucose 325 H POC Whole Bld Glucose Calcium 9.3 Serum Ketones SMALL H 05/02/18 05/02/18 10:45 12:08 WBC RBC Hgb Hct MCV MCH MCHC RDW Plt Count MPV Neut # (Auto) Lymph # (Auto) [place] # (Auto) Eos # (Auto) Baso # (Auto) Absolute Nucleated RBC Nucleated RBC % VBG pH 7.454 H VBG pCO2 40.6 L VBG pO2 37.5 VBG HCO3 27.8 VBG Total CO2 29.1 H VBG O2 Saturation 78.5 VBG Base Excess 3.6 H Sodium Potassium Chloride Carbon Dioxide Anion Gap BUN Creatinine Estimated GFR (MDRD) Glucose POC Whole Bld Glucose 292 H Calcium Serum Ketones PD MEDICAL DECISION MAKING - ED course ED course: glucose down to 200s with IVF will dc on metformin also bactroban and doxy for scrotal infection Departure - Departure Disposition: 01 Home, Self Care Clinical Impression: Abscess Diabetes Qualifiers: Diabetes mellitus type: type 2 Diabetes mellitus superintendent marine oil terminal insulin use: without intermediate use Diabetes mellitus complication status: without complication Qualified Code(s): E11.9 - Type 2 diabetes mellitus without complications Condition: Good Instructions: Metformin tablets, ED Staph Infec Abx Tx Only, ED Diabetes General Info Follow-Up: Gabrielle Brandt MD [Primary Care Provider] - Prescriptions: Doxycycline Hyclate 100 mg PO BID #14 capsule metFORMIN [Glucophage] 500 mg PO BIDWM #60 tablet Comments: It looks like you have diabetes That would cause the thirst and urination and blurry vision etc I am starting you on a medication called metformin You need to follow up with Dr Brandt this week for further evaluation and management and referral to diabetes education classes at the hospital and the eye doctor The abscess is small and already draining - recommend apply bactroban twice a day and taking doxycycline 4 times a day - if the culture indicates a need to change treatment we will call you
[2018-05-02] MEDS ORDERED: SODIUM CHLORIDE 0.9% 1,000 ML IV ONE (10:44)
[2018-05-02 10:52] LABS: BASOPHILS # (AUTO) 0.1 10^3/uL (0.0-0.1); BASOPHILS % (AUTO) 1.1 %; EOSINOPHILS % (AUTO) 0.6 %; HGB - HEMOGLOBIN 15.1 g/dL (14.0-18.0); LYMPHOCYTES # (AUTO) 1.2 10^3/uL (1.5-3.5); MEAN CORPUSCULAR HEMOGLOBIN 35.7 pg (27.0-31.0); MEAN CORPUSCULAR HGB CONC 36.1 g/dL (32.0-36.0); MEAN CORPUSCULAR VOLUME 99.1 fL (80.0-94.0); MEAN PLATELET VOLUME 9.3 fL (7.4-11.4); MONOCYTES # (AUTO) 0.4 10^3/uL (0.0-1.0); NEUTROPHILS # (AUTO) 5.6 10^3/uL (1.5-6.6); NEUTROPHILS % (AUTO) 76.3 %; PLT - PLATELET COUNT 172 10^3/uL (130-450); RED BLOOD COUNT 4.24 10^6/uL (4.70-6.10); RED CELL DISTRIBUTION WIDTH 14.2 % (12.0-15.0); VBG PCO2 40.6 mmHg (41-51); VBG PH 7.454 (7.31-7.41); WHITE BLOOD COUNT 7.3 x10^3/uL (4.8-10.8)
[2018-05-02 10:53] LABS: VBG BASE EXCESS 3.6 mmol/L (-2 - +2); VBG PO2 37.5 mmHg (25-47); VBG TOTAL CO2 29.1 mmol/L (24-29)
[2018-05-02 11:02] LABS: CALCIUM 9.3 mg/dL (8.5-10.3); CREATININE 1.1 mg/dL (0.6-1.2)
[2018-05-02 12:27] VITALS: BP 122/95
[2018-05-03 17:02] LABS: HB2 TOTAL 16.6 g/dL; HEMOGLOBIN A1C 2.07 g/dL; HEMOGLOBIN A1C % 13.6 % (4.6-6.2)
== END 2018-05-02 12:42 | disposition home or self-care (01) ==
LOC: ED 08:55
DX: N49.2 Inflammatory disorders of scrotum (principal); E11.9 Type 2 diabetes mellitus without complications; I10 Essential (primary) hypertension; I25.10 Atherosclerotic heart disease of native coronary artery without angina pectoris; Z95.5 Presence of coronary angioplasty implant and graft; Z86.711 Personal history of pulmonary embolism; Z86.718 Personal history of other venous thrombosis and embolism
CPT/HCPCS: 36415; 80048; 82009; 82803; 83036; 85025; 87070; 87077; 87181; 87205; 96360; 99283

== ENCOUNTER 2018-05-08 18:29 | Inpatient (IN) | payer OTHER ==
[2018-05-08] MEDS ORDERED: SODIUM CHLORIDE 0.9% 1,000 ML IV ONE (19:37)
[2018-05-08] MEDS ORDERED: INSULIN REGULAR HUMAN 100 UNIT/1 ML 10 ML MDV IVP STA (19:38)
--- NOTE | 2018-05-08 19:45 | ED Physician Documentation ---
History of Present Illness - Stated complaint Stated Complaint: DIABETIC CONCERNS - Chief complaint Chief Complaint: General - History obtained from History obtained from: Patient - History of Present Illness Timing: Other (47-year-old gentleman with recent diagnosis of type 2 diabetes, started on metformin 500 mg p.o. twice daily which he titrated up to thousand milligrams p.o. twice daily last week. Has an persistent high blood sugars, blurry vision, and tinnitus. Also some dizziness and sensation of high heart rate. He took his girlfriend's [place] this evening he does not know the dose.) Review of Systems Ten Systems: 10 systems reviewed and negative Constitutional: reports: Fatigue. denies: Fever, Chills Cardiac: denies: Chest pain / pressure, Palpitations Respiratory: denies: Dyspnea, Cough GI: reports: Nausea, Vomiting. denies: Abdominal Pain, Diarrhea PD PAST MEDICAL HISTORY - Past Medical History Past Medical History: Yes Cardiovascular: Congestive heart failure, Hypertension, Coronary artery disease, Deep vein thrombosis, Pulmonary embolism, Atrial fibrillation Respiratory: COPD, Other Endocrine/Autoimmune: None GI: None : None HEENT: None Psych: None Musculoskeletal: None - Past Surgical History Past Surgical History: Yes Ortho: Arthroscopic surgery Cardiovascular: Coronary stent - Present Medications Home Medications: Ambulatory Orders Medication Instructions Recorded Confirmed Metoprolol Succinate [Toprol Xl] 200 mg PO DAILY 08/20/16 08/14/17 Amiodarone HCl 200 mg PO BID #14 tablet 08/14/17 Aspirin 81 mg PO DAILY 08/14/17 08/14/17 Atorvastatin Calcium 40 mg PO QPM 08/14/17 08/14/17 Gabapentin 900 mg PO QID 08/14/17 08/14/17 Potassium Chloride 10/15/17 Rivaroxaban [Xarelto] 10/15/17 Doxycycline Hyclate 100 mg PO BID #14 capsule 05/02/18 Torsemide 10 mg PO 05/02/18 metFORMIN [Glucophage] 500 mg PO BIDWM #60 tablet 05/02/18 - Allergies Allergies/Adverse Reactions: Allergies Allergy/AdvReac Type Severity Reaction Status Date / Time No Known Drug Allergies Allergy Verified 05/08/18 18:40 - Social History Does the pt smoke?: Yes Smoking Status: Current every day smoker Does the pt drink ETOH?: Yes Does the pt have substance abuse?: No - POLST Patient has POLST: No PD ED PE NORMAL - Vitals Vital signs reviewed: Yes - General General: Alert and oriented X 3, No acute distress - HEENT HEENT: PERRL, EOMI, Ears normal, Moist mucous membranes, Pharynx benign - Neck Neck: Supple, no meningeal sign, No bony TTP - Cardiac Cardiac: RRR, No murmur - Respiratory Respiratory: No respiratory distress, Clear bilaterally - Abdomen Abdomen: Normal bowel sounds, Soft, Non tender - Derm Derm: No rash - Neuro Neuro: Alert and oriented X 3, Normal speech Results - Vitals Vitals: Vital Signs - 24 hr 05/08/18 18:33 Temperature 36.4 C L Heart Rate 86 Respiratory 16 Rate Blood Pressure 106/59 L O2 Saturation 97 Oxygen O2 Source Room air - Labs Labs: Laboratory Tests 05/08/18 05/08/18 05/08/18 19:50 19:50 19:50 WBC 6.3 RBC 4.25 L Hgb 14.9 Hct 42.5 MCV 100.0 H MCH 35.0 H MCHC 35.0 RDW 14.3 Plt Count 186 MPV 10.3 Neut # (Auto) 4.3 Lymph # (Auto) 1.4 L [place] # (Auto) 0.5 Eos # (Auto) 0.0 Baso # (Auto) 0.1 Absolute Nucleated RBC 0.00 Nucleated RBC % 0.0 PT 25.6 H INR 2.3 H VBG pH VBG pCO2 VBG pO2 VBG HCO3 VBG Total CO2 VBG O2 Saturation VBG Base Excess Sodium 126 L Potassium 2.4 L* Chloride 77 L* Carbon Dioxide 34 H Anion Gap 15.0 H BUN 15 Creatinine 1.3 H Estimated GFR (MDRD) 59 L Glucose 542 H* Calcium 9.2 Total Bilirubin 1.2 H AST 18 ALT 21 Alkaline Phosphatase 100 Total Protein 7.7 Albumin 4.2 Globulin 3.5 Albumin/Globulin Ratio 1.2 Lipase 65 H Serum Ketones NEGATIVE 05/08/18 19:50 WBC RBC Hgb Hct MCV MCH MCHC RDW Plt Count MPV Neut # (Auto) Lymph # (Auto) [place] # (Auto) Eos # (Auto) Baso # (Auto) Absolute Nucleated RBC Nucleated RBC % PT INR VBG pH 7.484 H VBG pCO2 47.2 VBG pO2 30.3 VBG HCO3 34.7 H VBG Total CO2 36.1 H VBG O2 Saturation 67.6 VBG Base Excess 9.6 H Sodium Potassium Chloride Carbon Dioxide Anion Gap BUN Creatinine Estimated GFR (MDRD) Glucose Calcium Total Bilirubin AST ALT Alkaline Phosphatase Total Protein Albumin Globulin Albumin/Globulin Ratio Lipase Serum Ketones PD MEDICAL DECISION MAKING - ED course ED course: 47-year-old gentleman with new onset diabetes, uncontrolled blood sugars despite rapidly titrating up his metformin at home. Blood sugar in triage was 590. He does not appear to be in DKA but we will check labs for same. He is amenable to the idea of starting a long-acting Insulin such as Lantus. However his labs are notable for contraction alkalosis with profound hypokalemia at 2.4 which probably deserves inpatient treatment and I spoke with Dr. Read for observation at 8:22 PM. Departure - Departure Disposition: ED Place in Observation Clinical Impression: Hypokalemia Diabetes Qualifiers: Diabetes mellitus type: type 2 Diabetes mellitus senior care insulin use: without athletic shoe designer use Diabetes mellitus complication status: with hyperglycemia Q ualified Code(s): E11.65 - Type 2 diabetes mellitus with hyperglycemia Condition: Serious
[2018-05-08 20:00] LABS: BASOPHILS # (AUTO) 0.1 10^3/uL (0.0-0.1); BASOPHILS % (AUTO) 0.8 %; EOSINOPHILS % (AUTO) 0.7 %; HGB - HEMOGLOBIN 14.9 g/dL (14.0-18.0); LYMPHOCYTES # (AUTO) 1.4 10^3/uL (1.5-3.5); LYMPHOCYTES % (AUTO) 22.2 %; MEAN PLATELET VOLUME 10.3 fL (7.4-11.4); MONOCYTES # (AUTO) 0.5 10^3/uL (0.0-1.0); MONOCYTES % (AUTO) 7.8 %; NEUTROPHILS # (AUTO) 4.3 10^3/uL (1.5-6.6); NEUTROPHILS % (AUTO) 68.5 %; PLT - PLATELET COUNT 186 10^3/uL (130-450); RED BLOOD COUNT 4.25 10^6/uL (4.70-6.10); RED CELL DISTRIBUTION WIDTH 14.3 % (12.0-15.0); WHITE BLOOD COUNT 6.3 x10^3/uL (4.8-10.8)
[2018-05-08 20:02] LABS: INR 2.3 (0.8-1.2); PT - PROTHROMBIN TIME 25.6 secs (9.9-12.6)
[2018-05-08 20:07] LABS: KETONES, SERUM (ACETEST) NEGATIVE (NEGATIVE)
[2018-05-08 20:08] LABS: VBG BASE EXCESS 9.6 mmol/L (-2 - +2); VBG PCO2 47.2 mmHg (41-51); VBG PH 7.484 (7.31-7.41); VBG PO2 30.3 mmHg (25-47); VBG TOTAL CO2 36.1 mmol/L (24-29)
[2018-05-08 20:15] LABS: ALBUMIN 4.2 g/dL (3.2-5.5); ALBUMIN/GLOBULIN RATIO 1.2 (1.0-2.2); ALKALINE PHOSPHATASE 100 IU/L (42-121); ALT ALANINE AMINOTRANSFERASE 21 IU/L (10-60); AST ASPARTATE AMINOTRANSFERASE 18 IU/L (10-42); BILIRUBIN,TOTAL 1.2 mg/dL (0.2-1.0); BUN - BLOOD UREA NITROGEN 15 mg/dL (6-20); CALCIUM 9.2 mg/dL (8.5-10.3); CARBON DIOXIDE - CO2 34 mmol/L (21-32); CREATININE 1.3 mg/dL (0.6-1.2); GFR - MDRD 59 (>89); LIPASE 65 U/L (22-51); SODIUM 126 mmol/L (135-145); TOTAL PROTEIN 7.7 g/dL (6.7-8.2)
[2018-05-08 20:17] LABS: CHLORIDE 77 mmol/L (101-111)
[2018-05-08 20:18] LABS: GLUCOSE 542 mg/dL (70-100)
[2018-05-08] MEDS ORDERED: POTASSIUM CHLOR 10 MEQ/100 ML 10 MEQ/100 ML BAG IV ONE (20:18)
[2018-05-08] MEDS ORDERED: POTASSIUM BICARB 25 MEQ TABLET PO STA (20:18)
[2018-05-08 20:24] LABS: HB2 TOTAL 16.4 g/dL; HEMOGLOBIN A1C 2.05 g/dL; HEMOGLOBIN A1C % 13.6 % (4.6-6.2)
[2018-05-08] MEDS ORDERED: SODIUM CHLORIDE FLUSH 0.9% 10 ML SYRINGE IVP PRN (21:12)
[2018-05-08] MEDS ORDERED: ACETAMINOPHEN 325 MG TABLET PO PRN (21:12)
[2018-05-08] MEDS ORDERED: ONDANSETRON 4 MG/2 ML VIAL IVP PRN (21:12)
[2018-05-08] MEDS ORDERED: NON FORMULARY MED (Rivaroxaban [Xarelto] 20 MG) PO SCH (21:24)
[2018-05-08] MEDS ORDERED: NS W/20 MEQ KCL 1,000 ML IV SCH ×2 (22:00)
[2018-05-08] MEDS ORDERED: POTASSIUM CHLOR 10 MEQ/100 ML 10 MEQ/100 ML BAG IV SCH (22:00)
[2018-05-08] MEDS ORDERED: AMIODARONE 200 MG TABLET PO SCH (22:00)
--- NOTE | 2018-05-08 22:00 | XRAY Report ---
Reason: Hx of CHF Procedure Date: 05/08/2018 Accession Number: [id number] / [id number] Procedure: XR - Chest 1 View X-Ray CPT Code: 09177 FULL RESULT: EXAM: CHEST RADIOGRAPHY EXAM DATE: 05/08/2018 09:45 PM. CLINICAL HISTORY: Productive cough. History of CHF. COMPARISON: CHEST 2 VIEW 08/14/2017 12:47 PM. TECHNIQUE: 1 view. FINDINGS: Lungs/Pleura: Stable 1.4 cm granuloma in the left mid lung. No focal consolidation or evidence of edema. No pleural effusion or pneumothorax. Mediastinum: Normal cardiomediastinal contour. Other: The bones are unremarkable. IMPRESSION: No acute cardiopulmonary abnormality. RADIA
[2018-05-08] MEDS: GABAPENTIN 300 MG CAPSULE PO SCH (23:06)
[2018-05-08] MEDS: ATORVASTATIN 40 MG TABLET PO SCH (23:06)
[2018-05-08] MEDS: INSULIN GLARGINE 300 UNIT/3 ML PEN SUBQ SCH (23:08)
[2018-05-08] MEDS: RIVAROXABAN 10 MG TABLET PO SCH (23:17)
[2018-05-08] MEDS ORDERED: POTASSIUM CHLORIDE 20 MEQ TABLET PO SCH (23:57)
[2018-05-08] MEDS ORDERED: TEMAZEPAM 15 MG CAPSULE PO PRN (23:58)
[2018-05-09 00:45] LABS: CALCIUM 8.8 mg/dL (8.5-10.3); CREATININE 1.4 mg/dL (0.6-1.2)
[2018-05-09] MEDS: DOXYCYCLINE 100 MG TABLET PO SCH ×3 (00:56→21:28)
[2018-05-09] MEDS: SODIUM CHLORIDE FLUSH 0.9% 10 ML SYRINGE IVP SCH ×3 (00:57→16:44)
[2018-05-09 01:00] LABS: HB2 TOTAL 15.1 g/dL; HEMOGLOBIN A1C 1.85 g/dL; HEMOGLOBIN A1C % 13.4 % (4.6-6.2)
--- NOTE | 2018-05-09 01:27 | HISTORY & PHYSICAL EXAMINATION ---
DATE OF SERVICE: 05/08/2018 Physician: Yuly Read MD HISTORY OF PRESENT ILLNESS: This is a 47-year-old white male with a history of coronary artery disease, stenting, congestive heart failure with he thinks an ejection fraction of 20%. He is followed by Dr. Hood of Cardiology in [place]. He has a history of recently diagnosed ingrown hairs in his testicles for which he was on doxycycline. He was on furosemide that was changed to torsemide approximately a year ago, and over the past 1 month he has changed his dosing on his own to bid dosing instead of spread out tid dosing, in order to prevent nocturia. As he did this, he had a 25-pound weight loss of fluid over the past 3-4 weeks. He has a history of diabetes that was just diagnosed 1 week ago, and he was started on Metformin. He states he saw his PCP once so far for management of newly diagnosed DM and was offered diabetic teaching but said he "could google everything." The patient has had neuropathy for several years and was started on gabapentin, and the dose has been increased with some improvement in his numbness, but now he has hypersensitivity and occasionally gets pain in the soles of his feet. The patient presents after a 2-day history of severely poorly controlled glucoses in the 400-600 range which he checks twice a day using his girlfriend's glucometer, does not have his own. He started to get intermittent vomiting with right upper quadrant pain with no pattern and also felt blurred vision, tinnitus, and overall weakness and presented to the emergency room. He was found to have a glucose of 542, potassium of 2.4, elevated BUN and creatinine, and is being admitted for diabetes which ispoorly controlled, hypokalemia, and acute kidney injury. which is poorly controlled PAST MEDICAL HISTORY 1. Coronary artery disease. 2. CHF (ejection fraction is not confirmed). 3. Atrial fibrillation history, on Xarelto and Amiodarone. 4. Pulmonary embolism from DVT 1-1/2 years ago. 5. Smoker. 6. Heavy alcohol use in the past. REVIEW OF SYSTEMS: The patient denies any angina, PND or orthopnea, palpitations or syncope. He takes his medications as prescribed except for the above adjustments of his own in the torsemide. He also was started on the metformin at 500 b.i.d., and he started to take it at 1000 b.i.d. because of the fingerstick glucoses that were so high. He has started to follow just a low- starch diet, but he has never had full official diabetic teaching or attended any classes. He has never seen an berry picker to evaluate for diabetic retinopathy or a reservations specialist. A comprehensive review of systems was performed, and the pertinent positives are listed; the rest are negative. FAMILY HISTORY: No inherited diseases. He has a brother who is healthy, 1 child who is healthy. SOCIAL HISTORY: He lives with his girlfriend. 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 He occasionally has to haul appliances up several flights of stairs. He is a smoker of half a pack a day for many years. He used to drink 2 beers a night and occaisional hard liquor but in the past 1 week has stopped this because it "does not taste good". He occasionally uses marijuana for insomnia. ALLERGIES: NONE. MEDICATIONS 1. Potassium chloride 10 mEq daily. 2. Metformin 500 mg b.i.d., of which he was actually taking 1000 b.i.d. 3. Torsemide 10 mg b.i.d. 4. Amiodarone 200 mg daily. 5. Baby aspirin daily. 6. Lipitor 40 mg daily. 7. Gabapentin 900 mg b.i.d. 8. Doxycycline 100 mg b.i.d. for 2 more days. PHYSICAL EXAMINATION GENERAL: White male who appears older than his age. He has male pattern baldness. VITAL SIGNS: Blood pressure 103/58, pulse of 64, sinus rhythm, afebrile, room air saturation 94%. HEENT: Unremarkable. NECK: No JVD or carotid bruits. LUNGS: Clear. HEART: Sounds normal. ABDOMEN: Soft, nontender. Normal bowel sounds. No organomegaly. EXTREMITIES: No clubbing, cyanosis or edema. He has decreased dorsalis pedis pulses bilaterally. He has venous stasis changes of the shins. NEUROLOGIC: He has numbness of the dorsum of his feet and hypersensitivity in the skin all the way up to the ankles of his feet. Otherwise, neurologic intact. LABORATORY DATA: Sodium 126, potassium 2.4, bicarbonate 34, BUN 15, creatinine 1.3, glucose 542. HbA1c 13.6. Bilirubin 1.2, normal liver tests. Lipase 65. White blood count 6.3, hemoglobin 14.9 with an MCV of 100, platelet count normal at 186. INR 2.3, but this is not reliable on Xarelto. Serum ketones negative. Venous blood gas had a pH of 7.48. DIAGNOSTIC STUDIES 1. Chest x-ray: No active disease. 2. EKG: Sinus rhythm at a rate of 71. Early repolarization. Prolonged QT interval with a QTc of 553. Left IVCD. IMPRESSION 1. Hyperosmolar hyponatremia. 2. Diabetes with hyperglycemia. 3. Volume contraction from diuretics. 4. Hypokalemia, severe. 5. Prolonged QT interval. 6. Acute kidney injury 7. History of coronary artery disease. PLAN 1. Admit the patient to a medical/surgical unit on telemetry. 2. Continue with his metoprolol, amiodarone, Xarelto, baby aspirin and Lipitor. 3. Finish his dose of doxycycline. 4. Begin him on IV saline with potassium replacement by giving potassium riders and p.o. supplements. 5. Follow his fingerstick glucoses q.4 h., follow his BMP every 6 hours. Begin Lantus at 5 mg subcutaneously every evening dose and cover his elevated glucoses with a sliding scale of Regular (Aspart) Insulin. Begin carbohydrate-controlled diet, and diabetic teaching to begin. Do not give Metformin as he may need imaging and a dye load, and also hold it while he has abnormal renal indices. 6. Obtain an Echocardiogram to establish is LV ejection fraction, decrease the IV saline rate after several hours. If he, indeed, has an ejection fraction under 40%, then an TERESITA or an ARB should also be considered once the creatinine has normalized with hydration. DEEP VENOUS THROMBOSIS PROPHYLAXIS: Pharmacotherapy with Xarelto. CODE STATUS: FULL CODE. ATTESTATION: The patient is expected to be discharged or transferred to another facility within 96 hours: Yes. TD: 05/09/2018 00:22 MTDD
[2018-05-09 01:43] LABS: FOLATE 5.59 ng/mL (5.90 - >24.8)
[2018-05-09 05:50] LABS: ALBUMIN 3.5 g/dL (3.2-5.5); ALBUMIN/GLOBULIN RATIO 1.2 (1.0-2.2); BILIRUBIN,TOTAL 1.1 mg/dL (0.2-1.0); CALCIUM 8.4 mg/dL (8.5-10.3); CREATININE 1.3 mg/dL (0.6-1.2); PHOSPHORUS 3.8 mg/dL (2.5-4.6); TOTAL PROTEIN 6.4 g/dL (6.7-8.2)
[2018-05-09] MEDS: NS W/20 MEQ KCL 1,000 ML IV SCH ×2 (06:14→14:51)
--- NOTE | 2018-05-09 08:24 | PROVIDER PROGRESS NOTE ---
Subjective - Prog Note Date Prog Note Date: 05/09/18 Prog Note Time: 08:23 - Subjective Pt reports feeling: Improved Subjective: Tyrone states that he has upper lip numbness that comes and goes and started shortly after waking up this morning. He also states that he does not appreciate his carb controlled diet. He has no other complaints. He denies headaches, chest pain, nausea, vomiting, rashes, dizziness, or a new cough. Current Medications - Current Medications Current Medications: Active Medications Acetaminophen (Tylenol) 650 mg PO Q4HR PRN PRN Reason: Pain or Fever > 38C (100.4F) Amiodarone HCl (Pacerone) 200 mg PO DAILY [facility] Last Admin: 05/09/18 08:59 Dose: 200 mg Aspirin (St Cristopher Aspirin) 81 mg PO DAILY [facility] Last Admin: 05/09/18 08:59 Dose: 81 mg Atorvastatin Calcium (Lipitor) 40 mg PO QPM [facility] Last Admin: 05/08/18 23:06 Dose: 40 mg Doxycycline Hyclate (Vibramycin) 100 mg PO BID [facility] Last Admin: 05/09/18 08:59 Dose: 100 mg Famotidine (Pepcid) 20 mg PO BID [facility] Last Admin: 05/09/18 08:59 Dose: 20 mg Folic Acid () 1 mg PO DAILY [facility] Gabapentin (Neurontin) 900 mg PO QID [facility] Last Admin: 05/09/18 08:58 Dose: 900 mg Potassium Chloride/Sodium Chloride (Normal Saline 0.9% W/20 Meq Kcl) 1,000 mls @ 100 mls/hr IV .Q10H [facility] Last Admin: 05/09/18 06:14 Dose: 100 mls/hr Insulin Aspart (Novolog) 2 - 10 unit SUBQ 0800,1200,1700,2100 [facility]; Protocol Last Admin: 05/09/18 11:50 Dose: 4 unit Insulin Glargine (Lantus Solostar) 5 unit SUBQ QPM [facility] Last Admin: 05/08/18 23:08 Dose: 5 unit Lisinopril (Zestril) 2.5 mg PO DAILY [facility] Metoprolol Succinate (Toprol Xl) 200 mg PO DAILY [facility] Last Admin: 05/09/18 08:57 Dose: 200 mg Nicotine (Nicoderm) 1 patch TOP DAILY [facility] Last Admin: 05/09/18 08:57 Dose: 1 patch Ondansetron HCl (Zofran Inj) 4 mg IVP Q6HR PRN PRN Reason: Nausea / Vomiting Polyethylene Glycol (Miralax) 17 gm PO DAILY [facility] Last Admin: 05/09/18 08:59 Dose: Not Given Potassium Chloride (K-Dur) 20 meq PO ONCE [facility] Stop: 05/10/18 03:00 Last Admin: 05/09/18 00:56 Dose: 20 meq Rivaroxaban (Xarelto) 20 mg PO QDDINNER [facility] Last Admin: 05/08/18 23:17 Dose: 20 mg Sodium Chloride (Normal Saline Flush 0.9%) 10 ml IVP PRN PRN PRN Reason: NEEDED PER PROVIDER ORDERS Sodium Chloride (Normal Saline Flush 0.9%) 10 ml IVP 0100,0900,1700 [facility] Last Admin: 05/09/18 09:02 Dose: Not Given Temazepam (Restoril) 15 mg PO QPM PRN PRN Reason: Insomnia Metoprolol Succinate [Toprol Xl] 200 mg PO DAILY 08/20/16 Aspirin 81 mg PO DAILY 08/14/17 Atorvastatin Calcium 40 mg PO QPM 08/14/17 Gabapentin 900 mg PO QID 08/14/17 Potassium Chloride 10/15/17 Rivaroxaban [Xarelto] 10/15/17 Torsemide 10 mg PO 05/02/18 Objective - Vital Signs/Intake & Output Reviewed Vital Signs: Yes Vital Signs: Vital Signs x48h Temp Pulse Resp BP Pulse Ox 05/09/18 08:00 36.3 C L 68 20 109/60 98 05/09/18 05:00 36.4 C L 64 18 105/56 L 94 Intake & Output: Intake & Output 05/06/18 05/07/18 05/08/18 05/09/18 23:59 23:59 23:59 23:59 Intake Total 1100 1106.667 Output Total 575 Balance 1100 531.667 - Objective General Appearance: positive: No acute distress, Alert Eyes Bilateral: positive: PERRL Eyes: OU Conjunctivae pale ENT: positive: Pharynx nml, Dry mucous membranes Neck: positive: Nml inspection, No JVD, Trachea midline Respiratory: positive: Chest non-tender, No respiratory distress Cardiovascular: positive: Regular rate & rhythm, No gallop, Systolic murmur, Decreased pulse(s) Peripheral Pulses: 1+ Radial (R), 1+ Radial (L) Abdomen: positive: Non-tender, Nml bowel sounds, Other (rounded, firm) Back: positive: Nml inspection Skin: positive: No rash, Warm, Dry Extremities: positive: Pedal edema, Joint swelling, Other (purple, chronic discolored BLEs, tenderness on exam, moderate BLE edema.) Neurologic/Psychiatric: positive: Oriented x3, CN's nml (2-12), Motor nml, Sensation nml, Weakness, Depressed mood/affect, Other ("pins and needles" to upper lip extending to left nostril that comes and goes.) Reflexes: Bicep (R): 3+, Bicep (L): 3+ - Lab Results Fish Bones: 05/08/18 19:50 05/09/18 05:21 Other Labs: Lab Results x24hrs 05/09/18 05/09/18 05/09/18 Range/Units 07:40 05:21 03:56 WBC (4.8-10.8) x10^3/uL RBC (4.70-6.10) 10^6/uL Hgb (14.0-18.0) g/dL Hct (42.0-52.0) % MCV (80.0-94.0) fL MCH (27.0-31.0) pg MCHC (32.0-36.0) g/dL RDW (12.0-15.0) % Plt Count (130-450) 10^3/uL MPV (7.4-11.4) fL Neut # (Auto) (1.5-6.6) 10^3/uL Lymph # (Auto) (1.5-3.5) 10^3/uL [place] # (Auto) (0.0-1.0) 10^3/uL Eos # (Auto) (0.0-0.7) 10^3/uL Baso # (Auto) (0.0-0.1) 10^3/uL Absolute Nucleated RBC x10^3/uL Nucleated RBC % /100WBC PT (9.9-12.6) secs INR (0.8-1.2) VBG pH (7.31-7.41) VBG pCO2 (41-51) mmHg VBG pO2 (25-47) mmHg VBG HCO3 (23-28) mmol/L VBG Total CO2 (24-29) mmol/L VBG O2 Saturation (60-80) % VBG Base Excess (-2 - +2) mmol/L Sodium 135 (135-145) mmol/L Potassium 3.0 L (3.5-5.0) mmol/L Chloride 88 L (101-111) mmol/L Carbon Dioxide 35 H (21-32) mmol/L Anion Gap 12.0 (6-13) BUN 13 (6-20) mg/dL Creatinine 1.3 H (0.6-1.2) mg/dL Estimated GFR (MDRD) 59 L (>89) Glucose 124 H (70-100) mg/dL POC Whole Bld Glucose 129 H 106 H (70 - 100) mg/dL Glycated Hemoglobin (4.6-6.2) % Estim Average Glucose (70-100) Calcium 8.4 L (8.5-10.3) mg/dL Phosphorus 3.8 (2.5-4.6) mg/dL Magnesium (1.7-2.8) mg/dL Total Bilirubin 1.1 H (0.2-1.0) mg/dL AST 15 (10-42) IU/L ALT 17 (10-60) IU/L Alkaline Phosphatase 78 (42-121) IU/L Total Protein 6.4 L (6.7-8.2) g/dL Albumin 3.5 (3.2-5.5) g/dL Globulin 2.9 (2.1-4.2) g/dL Albumin/Globulin Ratio 1.2 (1.0-2.2) Lipase (22-51) U/L Vitamin B12 (180-914) pg/mL Folate (5.90 - >24.8) ng/mL Serum Ketones (NEGATIVE) 05/09/18 05/09/18 05/09/18 Range/Units 00:27 00:27 00:27 WBC (4.8-10.8) x10^3/uL RBC (4.70-6.10) 10^6/uL Hgb (14.0-18.0) g/dL Hct (42.0-52.0) % MCV (80.0-94.0) fL MCH (27.0-31.0) pg MCHC (32.0-36.0) g/dL RDW (12.0-15.0) % Plt Count (130-450) 10^3/uL MPV (7.4-11.4) fL Neut # (Auto) (1.5-6.6) 10^3/uL Lymph # (Auto) (1.5-3.5) 10^3/uL [place] # (Auto) (0.0-1.0) 10^3/uL Eos # (Auto) (0.0-0.7) 10^3/uL Baso # (Auto) (0.0-0.1) 10^3/uL Absolute Nucleated RBC x10^3/uL Nucleated RBC % /100WBC PT (9.9-12.6) secs INR (0.8-1.2) VBG pH (7.31-7.41) VBG pCO2 (41-51) mmHg VBG pO2 (25-47) mmHg VBG HCO3 (23-28) mmol/L VBG Total CO2 (24-29) mmol/L VBG O2 Saturation (60-80) % VBG Base Excess (-2 - +2) mmol/L Sodium 131 L (135-145) mmol/L Potassium 2.3 L* (3.5-5.0) mmol/L Chloride 85 L (101-111) mmol/L Carbon Dioxide 34 H (21-32) mmol/L Anion Gap 12.0 (6-13) BUN 14 (6-20) mg/dL Creatinine 1.4 H (0.6-1.2) mg/dL Estimated GFR (MDRD) 54 L (>89) Glucose 159 H (70-100) mg/dL POC Whole Bld Glucose (70 - 100) mg/dL Glycated Hemoglobin (4.6-6.2) % Estim Average Glucose (70-100) Calcium 8.8 (8.5-10.3) mg/dL Phosphorus (2.5-4.6) mg/dL Magnesium 1.4 L (1.7-2.8) mg/dL Total Bilirubin (0.2-1.0) mg/dL AST (10-42) IU/L ALT (10-60) IU/L Alkaline Phosphatase (42-121) IU/L Total Protein (6.7-8.2) g/dL Albumin (3.2-5.5) g/dL Globulin (2.1-4.2) g/dL Albumin/Globulin Ratio (1.0-2.2) Lipase (22-51) U/L Vitamin B12 491 (180-914) pg/mL Folate 5.59 L (5.90 - >24.8) ng/mL Serum Ketones (NEGATIVE) 05/09/18 05/08/18 05/08/18 Range/Units 00:18 23:04 19:50 WBC (4.8-10.8) x10^3/uL RBC (4.70-6.10) 10^6/uL Hgb (14.0-18.0) g/dL Hct (42.0-52.0) % MCV (80.0-94.0) fL MCH (27.0-31.0) pg MCHC (32.0-36.0) g/dL RDW (12.0-15.0) % Plt Count (130-450) 10^3/uL MPV (7.4-11.4) fL Neut # (Auto) (1.5-6.6) 10^3/uL Lymph # (Auto) (1.5-3.5) 10^3/uL [place] # (Auto) (0.0-1.0) 10^3/uL Eos # (Auto) (0.0-0.7) 10^3/uL Baso # (Auto) (0.0-0.1) 10^3/uL Absolute Nucleated RBC x10^3/uL Nucleated RBC % /100WBC PT (9.9-12.6) secs INR (0.8-1.2) VBG pH (7.31-7.41) VBG pCO2 (41-51) mmHg VBG pO2 (25-47) mmHg VBG HCO3 (23-28) mmol/L VBG Total CO2 (24-29) mmol/L VBG O2 Saturation (60-80) % VBG Base Excess (-2 - +2) mmol/L Sodium (135-145) mmol/L Potassium (3.5-5.0) mmol/L Chloride (101-111) mmol/L Carbon Dioxide (21-32) mmol/L Anion Gap (6-13) BUN (6-20) mg/dL Creatinine (0.6-1.2) mg/dL Estimated GFR (MDRD) (>89) Glucose (70-100) mg/dL POC Whole Bld Glucose 260 H (70 - 100) mg/dL Glycated Hemoglobin 13.4 H 13.6 H (4.6-6.2) % Estim Average Glucose 338 H 344 H (70-100) Calcium (8.5-10.3) mg/dL Phosphorus (2.5-4.6) mg/dL Magnesium (1.7-2.8) mg/dL Total Bilirubin (0.2-1.0) mg/dL AST (10-42) IU/L ALT (10-60) IU/L Alkaline Phosphatase (42-121) IU/L Total Protein (6.7-8.2) g/dL Albumin (3.2-5.5) g/dL Globulin (2.1-4.2) g/dL Albumin/Globulin Ratio (1.0-2.2) Lipase (22-51) U/L Vitamin B12 (180-914) pg/mL Folate (5.90 - >24.8) ng/mL Serum Ketones (NEGATIVE) 05/08/18 05/08/18 05/08/18 Range/Units 19:50 19:50 19:50 WBC (4.8-10.8) x10^3/uL RBC (4.70-6.10) 10^6/uL Hgb (14.0-18.0) g/dL Hct (42.0-52.0) % MCV (80.0-94.0) fL MCH (27.0-31.0) pg MCHC (32.0-36.0) g/dL RDW (12.0-15.0) % Plt Count (130-450) 10^3/uL MPV (7.4-11.4) fL Neut # (Auto) (1.5-6.6) 10^3/uL Lymph # (Auto) (1.5-3.5) 10^3/uL [place] # (Auto) (0.0-1.0) 10^3/uL Eos # (Auto) (0.0-0.7) 10^3/uL Baso # (Auto) (0.0-0.1) 10^3/uL Absolute Nucleated RBC x10^3/uL Nucleated RBC % /100WBC PT 25.6 H (9.9-12.6) secs INR 2.3 H (0.8-1.2) VBG pH 7.484 H (7.31-7.41) VBG pCO2 47.2 (41-51) mmHg VBG pO2 30.3 (25-47) mmHg VBG HCO3 34.7 H (23-28) mmol/L VBG Total CO2 36.1 H (24-29) mmol/L VBG O2 Saturation 67.6 (60-80) % VBG Base Excess 9.6 H (-2 - +2) mmol/L Sodium 126 L (135-145) mmol/L Potassium 2.4 L* (3.5-5.0) mmol/L Chloride 77 L* (101-111) mmol/L Carbon Dioxide 34 H (21-32) mmol/L Anion Gap 15.0 H (6-13) BUN 15 (6-20) mg/dL Creatinine 1.3 H (0.6-1.2) mg/dL Estimated GFR (MDRD) 59 L (>89) Glucose 542 H* (70-100) mg/dL POC Whole Bld Glucose (70 - 100) mg/dL Glycated Hemoglobin (4.6-6.2) % Estim Average Glucose (70-100) Calcium 9.2 (8.5-10.3) mg/dL Phosphorus (2.5-4.6) mg/dL Magnesium (1.7-2.8) mg/dL Total Bilirubin 1.2 H (0.2-1.0) mg/dL AST 18 (10-42) IU/L ALT 21 (10-60) IU/L Alkaline Phosphatase 100 (42-121) IU/L Total Protein 7.7 (6.7-8.2) g/dL Albumin 4.2 (3.2-5.5) g/dL Globulin 3.5 (2.1-4.2) g/dL Albumin/Globulin Ratio 1.2 (1.0-2.2) Lipase 65 H (22-51) U/L Vitamin B12 (180-914) pg/mL Folate (5.90 - >24.8) ng/mL Serum Ketones NEGATIVE (NEGATIVE) 05/08/18 Range/Units 19:50 WBC 6.3 (4.8-10.8) x10^3/uL RBC 4.25 L (4.70-6.10) 10^6/uL Hgb 14.9 (14.0-18.0) g/dL Hct 42.5 (42.0-52.0) % MCV 100.0 H (80.0-94.0) fL MCH 35.0 H (27.0-31.0) pg MCHC 35.0 (32.0-36.0) g/dL RDW 14.3 (12.0-15.0) % Plt Count 186 (130-450) 10^3/uL MPV 10.3 (7.4-11.4) fL Neut # (Auto) 4.3 (1.5-6.6) 10^3/uL Lymph # (Auto) 1.4 L (1.5-3.5) 10^3/uL [place] # (Auto) 0.5 (0.0-1.0) 10^3/uL Eos # (Auto) 0.0 (0.0-0.7) 10^3/uL Baso # (Auto) 0.1 (0.0-0.1) 10^3/uL Absolute Nucleated RBC 0.00 x10^3/uL Nucleated RBC % 0.0 /100WBC PT (9.9-12.6) secs INR (0.8-1.2) VBG pH (7.31-7.41) VBG pCO2 (41-51) mmHg VBG pO2 (25-47) mmHg VBG HCO3 (23-28) mmol/L VBG Total CO2 (24-29) mmol/L VBG O2 Saturation (60-80) % VBG Base Excess (-2 - +2) mmol/L Sodium (135-145) mmol/L Potassium (3.5-5.0) mmol/L Chloride (101-111) mmol/L Carbon Dioxide (21-32) mmol/L Anion Gap (6-13) BUN (6-20) mg/dL Creatinine (0.6-1.2) mg/dL Estimated GFR (MDRD) (>89) Glucose (70-100) mg/dL POC Whole Bld Glucose (70 - 100) mg/dL Glycated Hemoglobin (4.6-6.2) % Estim Average Glucose (70-100) Calcium (8.5-10.3) mg/dL Phosphorus (2.5-4.6) mg/dL Magnesium (1.7-2.8) mg/dL Total Bilirubin (0.2-1.0) mg/dL AST (10-42) IU/L ALT (10-60) IU/L Alkaline Phosphatase (42-121) IU/L Total Protein (6.7-8.2) g/dL Albumin (3.2-5.5) g/dL Globulin (2.1-4.2) g/dL Albumin/Globulin Ratio (1.0-2.2) Lipase (22-51) U/L Vitamin B12 (180-914) pg/mL Folate (5.90 - >24.8) ng/mL Serum Ketones (NEGATIVE) ABX Reporting Has patient been on IV antibiotics over the past 48 hours?: No Assessment/Plan - Problem List (1) FER (acute kidney injury) Impression: The patient has an elevated creatinine of 1.5, that is improved after fluids to 1.1. He is thought to have a baseline creatinine of 1.0. His torsemide is on hold. Plan: Continue to monitor daily weights, I/O, and daily labs. Resume torsemide prior to discharge. (2) Hypokalemia Impression: The patient had an admitting potassium of 2.3, that improved to 3.0 this morning after PO and IV replacement. This is likely a consequence of his overuse of torsemide, which is now on hold. Plan: Continue to monitor labs, replace as needed and ensure that his discharge meds include a replacement. (3) Congestive heart failure Impression: The patient has known CHF and is on metoprolol, torsemide, Amioderone and today I have added low dose lisinopril. His heart rates are controlled at 60/80's, he has moderate BLE swelling, a firm enlarged abdominal girth, and does not require oxygen. An echo is pending. Plan: Continue meds, monitor weights, vital signs and await echo results. Qualifiers: Heart failure chronicity: acute on chronic (4) Peripheral vascular disease Impression: The patient denies any previous formal vascular studies, but states that he has been having difficulty with discoloration in his BLEs for at least the past year. He has loss of sensation, chronic edema, and it has been discovered that he has diabetes in the recent 1-2 weeks. He is prescribed gabapentin for this, which is continued here. Plan: Continue to monitor for worsening color, KRISH hose, elevated feet when able. (5) Diabetes mellitus type 2 with atherosclerosis of arteries of extremities Impression: The patient states that he has only had DM for a little over a week, and has an elevated HgA1C of ~13%. He had been on metformin at home, and is currently on low dose Lantus, SSI, and blood glucose monitoring. He really hates his carb controlled diet. Plan: Continue to monitor, and continue to give insulins, await build and deployment engineer recommendations. (6) Atrial fibrillation Impression: The patient has known atrial fibrillation and today has a controlled rate of 60- 80's. He is prescribed metoprolol succinate 200mg daily AND amioderone, which continues here. He is also anti-coagulated on Xorelto, which is continued. Plan: Await echo results, continue meds, and monitor on telemetry. (7) Tobacco dependence Impression: The patient continues to use up to 1/2 PPD, and is not interested in quitting. He has suffered grave consequences from this, vascular disease, CAD, and now has DM. He refused a patch, but I have added one in case he changes his mind. Plan: Encourage cessation on discharge, nicotine patch daily.
[2018-05-09] MEDS: METOPROLOL SUCCINATE 50 MG TABLET PO SCH (08:57)
[2018-05-09] MEDS: NICOTINE 14 MG PATCH TOP SCH (08:57)
[2018-05-09] MEDS: GABAPENTIN 300 MG CAPSULE PO SCH ×4 (08:58→21:28)
[2018-05-09] MEDS: FAMOTIDINE 20 MG TABLET PO SCH ×2 (08:59→21:28)
[2018-05-09] MEDS: ASPIRIN CHEW 81 MG TABLET PO SCH (08:59)
[2018-05-09] MEDS: POLYETHYLENE GLYCOL 3350 17 GM PACKET PO SCH (08:59)
[2018-05-09] MEDS ORDERED: AMIODARONE 200 MG TABLET PO SCH (09:00)
[2018-05-09] MEDS: INSULIN ASPART 300 UNIT/3 ML PEN SUBQ SCH ×4 (09:02→21:37)
[2018-05-09] MEDS: FOLIC ACID 1 MG TABLET PO SCH (12:39)
[2018-05-09] MEDS: LISINOPRIL 5 MG TABLET PO SCH (12:39)
[2018-05-09] MEDS: RIVAROXABAN 10 MG TABLET PO SCH (16:42)
[2018-05-09] MEDS: ATORVASTATIN 40 MG TABLET PO SCH (21:28)
[2018-05-09] MEDS: INSULIN GLARGINE 300 UNIT/3 ML PEN SUBQ SCH (21:38)
[2018-05-10] MEDS: SODIUM CHLORIDE FLUSH 0.9% 10 ML SYRINGE IVP SCH ×2 (00:54→08:40)
[2018-05-10] MEDS: NS W/20 MEQ KCL 1,000 ML IV SCH (02:36)
[2018-05-10 06:05] LABS: BASOPHILS # (AUTO) 0.1 10^3/uL (0.0-0.1); BASOPHILS % (AUTO) 1.2 %; EOSINOPHILS # (AUTO) 0.1 10^3/uL (0.0-0.7); EOSINOPHILS % (AUTO) 1.1 %; LYMPHOCYTES # (AUTO) 1.7 10^3/uL (1.5-3.5); LYMPHOCYTES % (AUTO) 34.8 %; MEAN CORPUSCULAR HGB CONC 34.5 g/dL (32.0-36.0); MEAN CORPUSCULAR VOLUME 101.5 fL (80.0-94.0); MEAN PLATELET VOLUME 10.1 fL (7.4-11.4); MONOCYTES # (AUTO) 0.4 10^3/uL (0.0-1.0); MONOCYTES % (AUTO) 8.2 %; NEUTROPHILS # (AUTO) 2.7 10^3/uL (1.5-6.6); NEUTROPHILS % (AUTO) 54.7 %; PLT - PLATELET COUNT 141 10^3/uL (130-450); RED CELL DISTRIBUTION WIDTH 14.3 % (12.0-15.0)
[2018-05-10 06:11] LABS: ALBUMIN 3.1 g/dL (3.2-5.5); ALBUMIN/GLOBULIN RATIO 1.1 (1.0-2.2); BILIRUBIN,TOTAL 0.7 mg/dL (0.2-1.0); CALCIUM 8.2 mg/dL (8.5-10.3); CREATININE 1.1 mg/dL (0.6-1.2); TOTAL PROTEIN 5.9 g/dL (6.7-8.2)
[2018-05-10] MEDS ORDERED: POTASSIUM CHLORIDE 20 MEQ TABLET PO ONE (07:13)
[2018-05-10] MEDS: INSULIN ASPART 300 UNIT/3 ML PEN SUBQ SCH ×2 (08:38→11:49)
[2018-05-10] MEDS: METOPROLOL SUCCINATE 50 MG TABLET PO SCH (08:38)
[2018-05-10] MEDS: LISINOPRIL 5 MG TABLET PO SCH (08:39)
[2018-05-10] MEDS: GABAPENTIN 300 MG CAPSULE PO SCH ×2 (08:39→12:35)
[2018-05-10] MEDS: NICOTINE 14 MG PATCH TOP SCH (08:39)
[2018-05-10] MEDS: DOXYCYCLINE 100 MG TABLET PO SCH (08:40)
[2018-05-10] MEDS: ASPIRIN CHEW 81 MG TABLET PO SCH (08:40)
[2018-05-10] MEDS: FOLIC ACID 1 MG TABLET PO SCH (08:40)
[2018-05-10] MEDS: POLYETHYLENE GLYCOL 3350 17 GM PACKET PO SCH (08:40)
[2018-05-10] MEDS: FAMOTIDINE 20 MG TABLET PO SCH (08:40)
[2018-05-10] MEDS ORDERED: AMIODARONE 200 MG TABLET PO SCH (09:00)
--- NOTE | 2018-05-10 11:33 | Discharge Plan ---
Discharge Plan Disposition: Home, Self Care Condition: Poor Prescriptions: Blood Sugar Diagnostic [Glucometer Strips] 1 each QID #50 strip Blood-Glucose Meter [Glucometer] 1 each QID #1 each Insulin Aspart [NovoLOG] 2 - 10 unit SUBQ 0800,1200,1700,2100 #3 pen Insulin Glargine [Lantus Solostar] 5 unit SUBQ QPM #1 pen Lancets 1 each QID #50 each Potassium Chloride 30 meq PO DAILY #20 capsule.er Diet: Diabetic Activity Restrictions: Activity as Tolerated Shower Restrictions: No (fall precaution) Instruction Topics: Log Blood Sugar, Hyperglycemia, Hypoglycemia Additional Instructions or Follow Up instructions: You may follow up your PCP in 3-4 days, and manage hyperglycemia, hypokalemia and have CMP blood test. Please follow up nurse instruction and education for insulin usage. Should your symptoms return or worsen, you may present ER or call 911 for help. No Smoking: If you smoke, Please STOP! Call for help. Follow-up with: Gabrielle Brandt MD [Primary Care Provider] -
--- NOTE | 2018-05-10 11:53 | DISCHARGE SUMMARY ---
Discharge Summary Discharge Date: 05/10/18 Discharging Provider: GOEL Primary Care Provider: Gabrielle Thomas Condition at Discharge: Poor Discharge Disposition: Home, Self Care Discharge Facility Name: home - DIAGNOSES Admission Diagnoses: (1) uncontrolled DM2 with hyperglycemia (2) FER (acute kidney injury) (3) Hypokalemia (4) Peripheral vascular disease . (5) Atrial fibrillation (6) Tobacco dependence Discharge Diagnoses with Status of Each Condition: (1) uncontrolled DM2 with hyperglycemia controlled. pt had A1C 13.4. pt only took Metformin at home. pt was prescribed Lantus and Novolog for d/c home. but unfortunately his health insurance could not cover with Pen of both insulin, and pt only agree to have Pen, not vial for his insulin. Per body maker report, Pt's PCP was called by her, and agreed to see pt on tomorrow. Lantus pen is prescribed to pt. his PCP will see pt on tomorrow, and pre-authorize pt for his insulin, and pt will have Lantus on tomorrow. also pt's Metformin is increase to 850 mg bid. (2) FER (acute kidney injury) resolved (3) Hypokalemia improved. pt's home potassium is increased to 30 meq daily and follow up PCP for continue management. (4) Peripheral vascular disease stable (5) Atrial fibrillation controlled, continue home med, and follow up PCP (6) Tobacco dependence advise pt quit tobacco - HPI History of Present Illness: refer from Dr. Read's HPI on 05/09/18 pt was admitted for N/V and abdominal pain. pt was found to have uncontrolled hyperglycemia with disturbance of electrolytic, but ketone is negative. - HOSPITAL COURSE Hospital Course: pt was prescribed insulin. his electrolytic was replaced. pt is stable after treatment. pt was educated how to use insulin and hypoglycemia prevention. pt is prescribed insulin and increase potassium dosage. pt will see his PCP tomorrow and continue to be medical managed by his PCP - ALLERGIES Allergies/Adverse Reactions: Allergies Allergy/AdvReac Type Severity Reaction Status Date / Time No Known Drug Allergies Allergy Verified 05/08/18 18:40 - MEDICATIONS Home Medications: Ambulatory Orders Medication Instructions Recorded Confirmed Metoprolol Succinate [Toprol Xl] 200 mg PO DAILY 08/20/16 05/09/18 Aspirin 81 mg PO DAILY 08/14/17 05/09/18 Atorvastatin Calcium 40 mg PO QPM 08/14/17 05/09/18 Gabapentin 900 - 1,200 mg PO QID 08/14/17 05/09/18 Rivaroxaban [Xarelto] 20 mg PO DAILY 10/15/17 05/09/18 Doxycycline Hyclate 100 mg PO BID #14 capsule 05/02/18 05/09/18 Torsemide 10 mg PO DAILY 05/02/18 05/09/18 Amiodarone [Pacerone] 200 mg PO DAILY 05/09/18 05/09/18 Blood Sugar Diagnostic [Glucometer 1 each QID #50 strip 05/10/18 Strips] Blood-Glucose Meter [Glucometer] 1 each QID #1 each 05/10/18 Insulin Glargine [Lantus Solostar] 5 unit SUBQ DAILY #1 pen 05/10/18 Lancets 1 each QID #50 each 05/10/18 Potassium Chloride 30 meq PO DAILY #20 capsule.er 05/10/18 metFORMIN [Glucophage] 850 mg PO BID #20 tablet 05/10/18 - PHYSICAL EXAM AT DISCHARGE General Appearance: positive: No acute distress, Alert. negative: Lethargic Eyes Bilateral: positive: Normal inspection, PERRL, No lid inflammation, Conjunctivae nml ENT: positive: ENT inspection nml, Pharynx nml, No signs of dehydration. negative: Purulent nasal drainage, Pharyngeal erythema, Oral lesions Neck: positive: Nml inspection, Thyroid nml, No JVD, Trachea midline. negative: Thyromegaly, Lymphadenopathy (R), Lymphadenopathy (L), Stiff neck, Swelling/bruising, Tracheal deviation Respiratory: positive: Chest non-tender, No respiratory distress, Breath sounds nml. negative: Wheezes, Rales, Rhonchi Cardiovascular: positive: Regular rate & rhythm, No murmur, No gallop. negative: Irregularly irregular, Extrasystoles, Tachycardia, Bradycardia, JVD present, Systolic murmur, Diastolic murmur Peripheral Pulses: positive: 2+ Abdomen: positive: Non-tender, No organomegaly, Nml bowel sounds, No distention. negative: Tenderness, Guarding, Rebound Back: positive: Nml inspection. negative: CVA tenderness (R), CVA tenderness (L) Skin: positive: Color nml, No rash, Warm, Dry. negative: Cyanosis, Diaphoresis, Pallor Extremities: positive: Non-tender, Full ROM, Nml appearance. negative: Calf tenderness, Joint swelling, Brittany's sign/cords Neurologic/Psychiatric: positive: Oriented x3, Motor nml, Sensation nml, Mood/affect nml. negative: Weakness, Sensory loss, Facial droop, Slurred/abnml speech, Depressed mood/affect - LABS Result Diagrams: 05/10/18 05:17 05/10/18 05:17 - FOLLOW UP Follow Up: You may follow up your PCP in 3-4 days, and manage hyperglycemia, hypokalemia and have CMP blood test. Please follow up nurse instruction and education for insulin usage. Should your symptoms return or worsen, you may present ER or call 911 for help. - TIME SPENT Time Spent in Discharge (Minutes): 50
[2018-05-10 12:01] VITALS: BP 94/61
== END 2018-05-10 14:00 | disposition home or self-care (01) | DRG 638 ==
LOC: ED 18:29 → MS2 21:12
PROVIDERS: ADMIT Internal Medicine; ATTEND Nurse Practitioner Gerontology
DX: E11.65 Type 2 diabetes mellitus with hyperglycemia (principal); E87.1 Hypo-osmolality and hyponatremia; N17.9 Acute kidney failure, unspecified; E11.42 Type 2 diabetes mellitus with diabetic polyneuropathy; E11.51 Type 2 diabetes mellitus with diabetic peripheral angiopathy without gangrene; I48.91 Unspecified atrial fibrillation; I11.0 Hypertensive heart disease with heart failure; I50.9 Heart failure, unspecified; F17.210 Nicotine dependence, cigarettes, uncomplicated; E87.6 Hypokalemia; T50.1X1A Poisoning by loop [high-ceiling] diuretics, accidental (unintentional), initial encounter; E86.9 Volume depletion, unspecified; T38.3X6A Underdosing of insulin and oral hypoglycemic [antidiabetic] drugs, initial encounter; I45.81 Long QT syndrome; I25.10 Atherosclerotic heart disease of native coronary artery without angina pectoris; Z79.84 Long term (current) use of oral hypoglycemic drugs; Z79.82 Long term (current) use of aspirin; Z79.01 Long term (current) use of anticoagulants; Z72.89 Other problems related to lifestyle; Z95.5 Presence of coronary angioplasty implant and graft; Z86.718 Personal history of other venous thrombosis and embolism; Z86.711 Personal history of pulmonary embolism
CPT/HCPCS: 36415; 71045; 80048; 80053; 82009; 82607; 82746; 82803; 83036; 83690; 83735; 83880; 84100; 85025; 85610; 93005; 93306; 96365; 99284

== ENCOUNTER 2018-10-16 14:57 | Inpatient (IN) | payer OTHER ==
[2018-10-16] MEDS ORDERED: ALBUTEROL NEB 2.5 MG/3 ML INH STA (15:13)
[2018-10-16 15:30] LABS: BASOPHILS % (AUTO) 0.4 %; EOSINOPHILS # (AUTO) 0.1 10^3/uL (0.0-0.7); EOSINOPHILS % (AUTO) 0.8 %; HGB - HEMOGLOBIN 12.3 g/dL (14.0-18.0); LYMPHOCYTES # (AUTO) 1.9 10^3/uL (1.5-3.5); MEAN CORPUSCULAR HEMOGLOBIN 38.9 pg (27.0-31.0); MEAN CORPUSCULAR HGB CONC 34.6 g/dL (32.0-36.0); MEAN CORPUSCULAR VOLUME 112.6 fL (80.0-94.0); MONOCYTES # (AUTO) 0.7 10^3/uL (0.0-1.0); MONOCYTES % (AUTO) 7.2 %; NEUTROPHILS # (AUTO) 7.2 10^3/uL (1.5-6.6); NEUTROPHILS % (AUTO) 72.6 %; PLT - PLATELET COUNT 245 10^3/uL (130-450); RED BLOOD COUNT 3.15 10^6/uL (4.70-6.10); RED CELL DISTRIBUTION WIDTH 18.2 % (12.0-15.0); WHITE BLOOD COUNT 9.9 x10^3/uL (4.8-10.8)
[2018-10-16 15:34] LABS: KETONES, SERUM (ACETEST) NEGATIVE (NEGATIVE)
[2018-10-16] MEDS ORDERED: SODIUM CHLORIDE 0.9% 1,000 ML IV ONE ×2 (15:35→15:49)
[2018-10-16] MEDS ORDERED: ONDANSETRON 4 MG/2 ML VIAL IVP STA (15:35)
[2018-10-16 15:39] LABS: VBG BASE EXCESS 3.6 mmol/L (-2 - +2); VBG PCO2 41.1 mmHg (41-51); VBG PH 7.45 (7.31-7.41); VBG PO2 30.4 mmHg (25-47); VBG TOTAL CO2 29.2 mmol/L (24-29)
[2018-10-16 15:40] LABS: ALBUMIN 4.3 g/dL (3.2-5.5); ALBUMIN/GLOBULIN RATIO 1.3 (1.0-2.2); ALKALINE PHOSPHATASE 62 IU/L (42-121); ALT ALANINE AMINOTRANSFERASE 14 IU/L (10-60); AST ASPARTATE AMINOTRANSFERASE 21 IU/L (10-42); BILIRUBIN,TOTAL 1.1 mg/dL (0.2-1.0); BUN - BLOOD UREA NITROGEN 39 mg/dL (6-20); CALCIUM 8.7 mg/dL (8.5-10.3); CARBON DIOXIDE - CO2 29 mmol/L (21-32); CHLORIDE 93 mmol/L (101-111); CREATININE 4.5 mg/dL (0.6-1.2); GFR - MDRD 14 (>89); GLUCOSE 119 mg/dL (70-100); LIPASE 39 U/L (22-51); MAGNESIUM 1.7 mg/dL (1.7-2.8); PHOSPHORUS 4.6 mg/dL (2.5-4.6); SODIUM 138 mmol/L (135-145); TOTAL PROTEIN 7.6 g/dL (6.7-8.2)
[2018-10-16 15:53] LABS: PLATELET ESTIMATE, MANUAL NORMAL (130-450,000) (NORMAL); PLATELET MORPHOLOGY NORMAL APPEARANCE (NORMAL)
--- NOTE | 2018-10-16 15:58 | ED Physician Documentation ---
History of Present Illness - Stated complaint Stated Complaint: MUSCLE TWITCHING - Chief complaint Chief Complaint: Abd Pain - History obtained from History obtained from: Patient - History of Present Illness Timing: How many days ago (3) Pain level max: 3 Pain level now: 1 - Additonal information Additional information: 48-year-old male with a history of congestive heart failure and diabetes, presents to the emergency department with "muscle twitching" for the past 3-4 days. Vomiting for the past 2 days. States blood sugars are well controlled. No fevers. No changes to his medication. Has difficulty walking and handling things. Review of Systems Ten Systems: 10 systems reviewed and negative Constitutional: denies: Fever, Chills Respiratory: denies: Cough GI: reports: Nausea, Vomiting, Constipation Skin: denies: Rash Musculoskeletal: denies: Neck pain, Back pain Neurologic: denies: Headache PD PAST MEDICAL HISTORY - Past Medical History Past Medical History: Yes Cardiovascular: Congestive heart failure, Hypertension, Coronary artery disease, Deep vein thrombosis, Pulmonary embolism, Atrial fibrillation Respiratory: COPD, Other Neuro: None Endocrine/Autoimmune: None GI: None : None HEENT: None Psych: None Musculoskeletal: None - Past Surgical History Past Surgical History: Yes Ortho: Arthroscopic surgery Cardiovascular: Coronary stent - Present Medications Home Medications: Ambulatory Orders Medication Instructions Recorded Confirmed Metoprolol Succinate [Toprol Xl] 200 mg PO DAILY 08/20/16 10/16/18 Aspirin 81 mg PO DAILY 08/14/17 10/16/18 Atorvastatin Calcium 40 mg PO QPM 08/14/17 10/16/18 Gabapentin 900 - 1,200 mg PO QID 08/14/17 10/16/18 Rivaroxaban [Xarelto] 20 mg PO DAILY 10/15/17 10/16/18 Doxycycline Hyclate 100 mg PO BID #14 capsule 05/02/18 10/16/18 Torsemide 10 mg PO DAILY 05/02/18 10/16/18 Amiodarone [Pacerone] 200 mg PO DAILY 05/09/18 10/16/18 Blood Sugar Diagnostic [Glucometer 1 each QID #50 strip 05/10/18 10/16/18 Strips] Blood-Glucose Meter [Glucometer] 1 each QID #1 each 05/10/18 10/16/18 Insulin Glargine [Lantus Solostar] 5 unit SUBQ DAILY #1 pen 10/30/18 04/07/19 Lancets 1 each MC QID #50 each 05/10/18 10/16/18 Potassium Chloride 30 meq PO DAILY #20 capsule.er 05/10/18 10/16/18 metFORMIN [Glucophage] 850 mg PO BID #20 tablet 05/10/18 10/16/18 - Allergies Allergies/Adverse Reactions: Allergies Allergy/AdvReac Type Severity Reaction Status Date / Time No Known Drug Allergies Allergy Verified 10/16/18 15:03 - Social History Does the pt smoke?: Yes Smoking Status: Current every day smoker Does the pt drink ETOH?: Yes Does the pt have substance abuse?: No - POLST Patient has POLST: No PD ED PE NORMAL - Vitals Vital signs reviewed: Yes - General General: Alert and oriented X 3, No acute distress, Well developed/nourished - HEENT HEENT: PERRL, Moist mucous membranes - Neck Neck: Supple, no meningeal sign - Cardiac Cardiac: RRR, Strong equal pulses - Respiratory Respiratory: No respiratory distress, Clear bilaterally - Abdomen Abdomen: Soft, Non tender, Non distended - Derm Derm: Warm and dry, No rash - Extremities Extremities: No edema, No calf tenderness / cord - Neuro Neuro: Alert and oriented X 3 - Psych Psych: Normal mood, Normal affect Results - Vitals Vitals: Vital Signs - 24 hr 10/16/18 10/16/18 15:01 15:44 Temperature 37.1 C Heart Rate 61 88 Respiratory 17 18 Rate Blood Pressure 129/75 O2 Saturation 99 Oxygen O2 Source Room air - Labs Labs: Laboratory Tests 10/16/18 10/16/18 10/16/18 14:05 14:05 14:50 WBC 9.9 RBC 3.15 L Hgb 12.3 L Hct 35.5 L MCV 112.6 H MCH 38.9 H MCHC 34.6 RDW 18.2 H Plt Count 245 MPV 8.0 Neut # (Auto) 7.2 H Lymph # (Auto) 1.9 Polk # (Auto) 0.7 Eos # (Auto) 0.1 Baso # (Auto) 0.0 Absolute Nucleated RBC 0.00 Nucleated RBC % 0.1 Manual Slide Review Indicated WBC Morphology NORMAL APPEARANCE Platelet Estimate NORMAL (130-450,000) Platelet Morphology NORMAL APPEARANCE RBC Morph Micro Appear 1+ STOMATOCYTES VBG pH VBG pCO2 VBG pO2 VBG HCO3 VBG Total CO2 VBG O2 Saturation VBG Base Excess Sodium Potassium Chloride Carbon Dioxide Anion Gap BUN Creatinine Estimated GFR (MDRD) Glucose POC Whole Bld Glucose Glycated Hemoglobin Estim Average Glucose Calcium Phosphorus Magnesium Total Bilirubin AST ALT Alkaline Phosphatase Troponin I < 0.04 B-Natriuretic Peptide 171 H Total Protein Albumin Globulin Albumin/Globulin Ratio Lipase Ethyl Alcohol Serum Ketones 10/16/18 10/16/18 10/16/18 14:50 14:50 14:50 WBC RBC Hgb Hct MCV MCH MCHC RDW Plt Count MPV Neut # (Auto) Lymph # (Auto) Polk # (Auto) Eos # (Auto) Baso # (Auto) Absolute Nucleated RBC Nucleated RBC % Manual Slide Review WBC Morphology Platelet Estimate Platelet Morphology RBC Morph Micro Appear VBG pH 7.450 H VBG pCO2 41.1 VBG pO2 30.4 VBG HCO3 27.9 VBG Total CO2 29.2 H VBG O2 Saturation 59.5 L VBG Base Excess 3.6 H Sodium 138 Potassium 3.1 L Chloride 93 L Carbon Dioxide 29 Anion Gap 16.0 H BUN 39 H Creatinine 4.5 H Estimated GFR (MDRD) 14 L Glucose 119 H POC Whole Bld Glucose Glycated Hemoglobin Estim Average Glucose Calcium 8.7 Phosphorus 4.6 Magnesium 1.7 Total Bilirubin 1.1 H AST 21 ALT 14 Alkaline Phosphatase 62 Troponin I B-Natriuretic Peptide Total Protein 7.6 Albumin 4.3 Globulin 3.3 Albumin/Globulin Ratio 1.3 Lipase 39 Ethyl Alcohol < 5.0 Serum Ketones NEGATIVE 10/16/18 10/16/18 14:50 15:21 WBC RBC Hgb Hct MCV MCH MCHC RDW Plt Count MPV Neut # (Auto) Lymph # (Auto) Polk # (Auto) Eos # (Auto) Baso # (Auto) Absolute Nucleated RBC Nucleated RBC % Manual Slide Review WBC Morphology Platelet Estimate Platelet Morphology RBC Morph Micro Appear VBG pH VBG pCO2 VBG pO2 VBG HCO3 VBG Total CO2 VBG O2 Saturation VBG Base Excess Sodium Potassium Chloride Carbon Dioxide Anion Gap BUN Creatinine Estimated GFR (MDRD) Glucose POC Whole Bld Glucose 100 Glycated Hemoglobin 5.9 Estim Average Glucose 123 H Calcium Phosphorus Magnesium Total Bilirubin AST ALT Alkaline Phosphatase Troponin I B-Natriuretic Peptide Total Protein Albumin Globulin Albumin/Globulin Ratio Lipase Ethyl Alcohol Serum Ketones PD MEDICAL DECISION MAKING - ED course Complexity details: reviewed results, re-evaluated patient, considered differential, d/w patient ED course: 48-year-old male presents to the emergency department with muscle spasms as well as vomiting for the past few days. He is found to be in acute renal failure. Possibly secondary to medication? Given IV fluids. Bladder scan reveals an empty bladder as well as confirmed by bedside ultrasound. No evidence of ob structive causes for his acute renal failure. Discussed the case with the hospitalist, Dr. Armstrong and will admit. This document was made in part using voice recognition software. While efforts are made to proofread this document, sound alike and grammatical errors may occur. Departure - Departure Disposition: 66 [facility] DC/Xfer Clinical Impression: Acute renal failure Qualifiers: Acute renal failure type: unspecified Qualified Code(s): N17.9 - Acute kidney failure, unspecified Condition: Stable Discharge Date/Time: 10/16/18 17:35
[2018-10-16] MEDS ORDERED: SODIUM CHLORIDE FLUSH 0.9% 10 ML SYRINGE IVP PRN ×2 (16:56→17:44)
[2018-10-16] MEDS ORDERED: ACETAMINOPHEN 325 MG TABLET PO PRN ×2 (16:56→17:44)
[2018-10-16] MEDS ORDERED: ONDANSETRON 4 MG/2 ML VIAL IVP PRN ×2 (16:56→17:44)
[2018-10-16] MEDS ORDERED: SODIUM CHLORIDE 0.9% 1,000 ML IV SCH ×2 (17:00→17:06)
[2018-10-16] MEDS ORDERED: SODIUM CHLORIDE FLUSH 0.9% 10 ML SYRINGE IVP SCH (17:00)
[2018-10-16] MEDS ORDERED: ALBUTEROL NEB 2.5 MG/3 ML INH PRN ×2 (17:06→17:44)
--- NOTE | 2018-10-16 17:11 | HISTORY & PHYSICAL EXAMINATION ---
Chief Complaint - Chief Complaint Chief Complaint: vomiting and muscle cramp/twitching History of Present Illness - History of Present Illness HPI Comment/Other: Mr. Licona is a 48-year-old male with a PMH significant of Congestive heart failure, Hypertension, Coronary artery disease, Deep vein thrombosis, Pulmonary embolism, Atrial fibrillation, CKD stage 2/3 and diabetes, presents to the emergency department complain with "muscle twitching""muscle cramp" for the past 3-4 days. Pt report in the past 4 days, he has difficulty walking and handling things because of "hand tremor," and "muscle twitching." he also report he had vomiting for the past 2 days. He report his blood sugars are well controlled. He report he is not to take his medication according to his medication schedule. pt report He sometime took four pills of Torsemide in the morning then he did not take in the evening, or did not take for next day. he add/reduce the dosage by himself without consulting with medical provider " I messed up". He report he still had good urination but his urine is very dark on yesterday. He report he still smoke cigarette one pack per day. He denies chest pain, headache, fever, chill, cough, shortness of breath, diarrhea, GI bleeding. Pt's lab reveals his creatinine is 4.5 today from 1.1 at 04/2018. BNP is 171 today. Pt is afebrile, hemodynamic stable in ER. Pt is admitted for acute renal failure. History - Past Medical History Cardiovascular: reports: Congestive heart failure, Hypertension, Coronary artery disease, Deep vein thrombosis, Pulmonary embolism, Atrial fibrillation Respiratory: reports: COPD, Other Neuro: reports: None Endocrine/Autoimmune: reports: None GI: reports: None : reports: None HEENT: reports: None Psych: reports: None Musculoskeletal: reports: None MRSA Hx?: No - Past Surgical History Ortho: reports: Arthroscopic surgery Cardiovascular: reports: Coronary stent - Family & Social History Family History Comment/Other: pt report he is living in [place] with his girlfriend. he has no children. his job is [employer]. Social History Notes: pt report he smoke ciagrette one pack per day. he denies alcohol and drug issue. - POLST Patient has POLST: No POLST Status: Full Code Meds/Allgy - Home Medications Home Medications: Ambulatory Orders Medication Instructions Recorded Confirmed Metoprolol Succinate [Toprol Xl] 200 mg PO DAILY 08/20/16 10/16/18 Aspirin 81 mg PO DAILY 08/14/17 10/16/18 Atorvastatin Calcium 40 mg PO QPM 08/14/17 10/16/18 Gabapentin 900 - 1,200 mg PO QID 08/14/17 10/16/18 Rivaroxaban [Xarelto] 20 mg PO DAILY 10/15/17 10/16/18 Doxycycline Hyclate 100 mg PO BID #14 capsule 05/02/18 10/16/18 Torsemide 30 mg PO DAILY 05/02/18 10/17/18 Amiodarone [Pacerone] 200 mg PO DAILY 05/09/18 10/16/18 Blood Sugar Diagnostic [Glucometer 1 each QID #50 strip 05/10/18 10/16/18 Strips] Blood-Glucose Meter [Glucometer] 1 each QID #1 each 05/10/18 10/16/18 Insulin Glargine [Lantus Solostar] 5 unit SUBQ DAILY #1 pen 05/10/18 10/16/18 Lancets 1 each QID #50 each 05/10/18 10/16/18 Potassium Chloride 30 meq PO DAILY #20 capsule.er 05/10/18 10/16/18 metFORMIN [Glucophage] 850 mg PO BID #20 tablet 05/10/18 10/16/18 - Allergies Allergies/Adverse Reactions: Allergies Allergy/AdvReac Type Severity Reaction Status Date / Time No Known Drug Allergies Allergy Verified 10/16/18 15:03 Review of Systems - Constitutional Constitutional: reports: Poor appetite. denies: Fatigue, Fever, Chills, Malaise, Weakness, Diaphoresis, Night sweats - Eyes Eyes: denies: Pain, Irritation, Amaurosis, Blurred vision, Spots in vision, Field loss, Vision loss, Dipolpia - Ears, Nose & Throat Ears, Nose & Throat: denies: Ear pain, Hearing loss, Hearing aids, Tinnitus, Vertigo, Nasal pain, Nasal discharge, Nosebleeds, Nasal obstruction, Postnasal drainage, Dentures, Hoarseness - Cardiovascular Cariovascular: denies: Irregular heart rate, Palpitations, Chest pain, Edema, Lightheadedness, Syncope, Exertional dyspnea, Decr. exercise tolerance - Respiratory Respiratory: denies: Cough, Sputum production, Wheezing, Snoring, Hemoptysis, Orthopnea, SOB at rest, SOB with exertion - Gastrointestinal Gastrointestinal: reports: Nausea, Vomiting, Poor appetite. denies: Abdominal pain, Abdominal distention, Constipation, Diarrhea, Change in bowel habits, Rectal bleeding, Black stools, Bloody stools, Bile emesis, Saqib blood emesis, Coffee grounds emesis, Reflux/heartburn, Bloating - Genitourinary Genitourinary: denies: Dysuria, Frequency, Urgency, Hematuria, Incontinence, Flank pain, Nocturia, Urethral discharge - Musculoskeletal Musculoskeletal: reports: Muscle pain, Muscle aches. denies: Back pain, Stif fness, Limited range of motion, Muscle weakness, Gout, Joint pain, Joint swelling - Integumentary Integumentary: denies: Rash, Pruritis, Lesions, Dryness, Lumps, Acne, Pigment changes, Nail changes - Neurological Neurological: denies: General weakness, Focal weakness, Headache, Dizziness, Numbness, Memory problems, Pre-existing deficit, Abnormal gait, Seizures, Incoordination, Slurred speech - Psychiatric Psychiatric: denies: Depression, Anxiety, Suicidal, Delusions, Hallucinations, Homicidal - Endocrine Endocrine: denies: Polyuria, Polydypsia, Polyphagia, Intolerance to cold - Hematologic/Lymphatic Hematologic/Lymphatic: denies: Anemia, Bruising, Petechiae, Blood clots, Lymphadenopathy, Bleeding tendencies Prior Level of Functionality: independent Exam - Vital Signs Reviewed Vital Signs: Yes Vital Signs: Vital Signs x48h Temp Pulse Resp BP Pulse Ox 10/16/18 15:44 88 18 10/16/18 15:01 37.1 C 61 17 129/75 99 - Physical Exam General Appearance: positive: No acute distress, Alert. negative: Lethargic Eyes Bilateral: positive: Normal inspection, PERRL. negative: No lid inflammation, Conjunctivae nml ENT: positive: ENT inspection nml, Pharynx nml, No signs of dehydration. negative: Purulent nasal drainage, Pharyngeal erythema, Oral lesions Neck: positive: Nml inspection, Thyroid nml, No JVD, Trachea midline. negative: Thyromegaly, Lymphadenopathy (R), Lymphadenopathy (L), Stiff neck, Swelling/bruising, Tracheal deviation Respiratory: positive: Chest non-tender, No respiratory distress, Breath sounds nml. negative: Wheezes, Rales, Rhonchi Cardiovascular: positive: Regular rate & rhythm, No murmur, No gallop. negative: Irregularly irregular, Extrasystoles, Tachycardia, Bradycardia, Systolic murmur, Diastolic murmur Peripheral Pulses: positive: 2+ Abdomen: positive: Non-tender, No organomegaly, Nml bowel sounds, No distention. negative: Tenderness, Guarding, Rebound Back: positive: Nml inspection. negative: CVA tenderness (R), CVA tenderness (L) Skin: positive: Color nml, No rash, Warm, Dry. negative: Cyanosis, Diaphoresis, Pallor Extremities: positive: Non-tender, Full ROM, Nml appearance. negative: Calf tenderness, Joint swelling, Brittany's sign/cords Neurologic/Psychiatric: positive: Oriented x3, Sensation nml, Mood/affect nml. negative: Weakness, Sensory loss, Facial droop, Slurred/abnml speech, Depressed mood/affect Sepsis Event Note (H) - Evaluation Current Stage of Sepsis: Ruled out Conclusion/Plan - Problem List (1) Acute renal failure Conclusion/Plan: pt's creatinine is 4.5 today, from 1.1 about 6 months ago. pt had underline CKD at 2/. pt report he vomiting, muscle cramp. it seems dehydration plus underline chronic CKD contribute to AKD US of kidney IVF of NS. pt has hx of CHF, precaution of fluid overload. hold nephrolotoxic agent daily lab monitor Qualifiers: Acute renal failure type: unspecified Qualified Code(s): N17.9 - Acute kidney failure, unspecified (2) Atrial fibrillation Conclusion/Plan: HR is stable around 65. pt had Metoprolol 200mg daily, reconciled. pt has Xarelto 20mg daily, reconciled. (3) Congestive heart failure Conclusion/Plan: pt had ECHO on 04/28, which revealed EF 60%. It seem more likely diastolic CHF. pt had Torsemide. Now it is hold ECHO study precaution of fluid overload check BNP to monitor fluid load. Qualifiers: Heart failure chronicity: acute on chronic (4) Diabetes Conclusion/Plan: pt report he had Metformin and insulin Lantus hold Metformin slide scale, reconcile Lantus ACHS, hypoglycemia protocol Qualifiers: Diabetes mellitus type: type 2 Diabetes mellitus long term care pharmacist insulin use: without long term care pharmacist use Diabetes mellitus complication status: with hyperglycemia Qualified Code(s): E11.65 - Type 2 diabetes mellitus with hyperglycemia (5) Hypokalemia Conclusion/Plan: K is 3.1, replacement, lab monitor (6) Tobacco dependence Conclusion/Plan: pt report he still smoke cigarette one pack daily, ask to have Nicotine Patch (7) Hx of pulmonary embolus Conclusion/Plan: pt report had hx of PE and DVT before because his Afib. he took Xarelto continue Xarelto tele and vital monitor (8) Medical non-compliance Conclusion/Plan: pt had problem for medical non-compliance according to his report, which could cause his renal failure educate and advise pt for medical compliance (9) HTN (hypertension) Conclusion/Plan: pt's blood pressure is at low side. Hold Torsemide. reconcile Metoprolol for Afib HR control. (10) Full code status Conclusion/Plan: pt request full code - Lab Results Fish Bones: 10/17/18 05:10 10/17/18 05:10 Core Measures - Anticipated LOS I expect patient to be DC'd or transferred within 96 hours.: Yes - DVT/VTE - Prophylaxis VTE/DVT Device ordered at admit?: Yes VTE/DVT Prophylaxis med ordered at admit?: Yes
[2018-10-16] MEDS ORDERED: POTASSIUM CHLORIDE 20 MEQ TABLET PO ONE (17:57)
[2018-10-16 18:01] LABS: HB2 TOTAL 15.9 g/dL; HEMOGLOBIN A1C 0.65 g/dL; HEMOGLOBIN A1C % 5.9 % (4.6-6.2)
[2018-10-16] MEDS ORDERED: IPRATROPIUM/ALBUTEROL 3 ML NEB INH PRN (18:42)
[2018-10-16] MEDS: SODIUM CHLORIDE 0.9% 1,000 ML IV SCH (19:00)
[2018-10-16] MEDS: INSULIN ASPART 300 UNIT/3 ML PEN SUBQ SCH (20:46)
[2018-10-16] MEDS ORDERED: TEMAZEPAM 15 MG CAPSULE PO PRN (20:51)
[2018-10-16] MEDS ORDERED: INSULIN ASPART 300 UNIT/3 ML PEN SUBQ SCH (21:00)
[2018-10-16] MEDS ORDERED: FAMOTIDINE 20 MG TABLET PO SCH (21:00)
[2018-10-16] MEDS: FAMOTIDINE 20 MG TABLET PO SCH (22:31)
[2018-10-16 22:35] LABS: MUDS CUTOFF CONCENTRATIONS CUTOFF CONC BELOW:
[2018-10-16 22:38] LABS: GLUCOSE, URINE (UA) NEGATIVE (NEGATIVE); KETONES,URINE (UA) TRACE mg/dL (NEGATIVE); LEUKOCYTE ESTERASE, URINE NEGATIVE (NEGATIVE); NITRITE,URINE NEGATIVE (NEGATIVE); OCCULT BLOOD,URINE NEGATIVE (NEGATIVE); PROTEIN,URINE TRACE mg/dL (NEGATIVE); UROBILINOGEN,URINE 0.2 (NORMAL) E.U./dL (NORMAL)
[2018-10-16 22:46] LABS: BACTERIA,URINE None Seen /HPF (None Seen); BILIRUBIN,URINE NEGATIVE (NEGATIVE); CLARITY,URINE CLEAR (CLEAR); EPITHELIAL CELLS,UR FEW Transitional /HPF (<= Few); ICTOTEST,URINE NEGATIVE; RBC,URINE None Seen /HPF (0-5); SQUAMOUS EPITHELIAL CELL,UR NONE SEEN (<= Few)
[2018-10-16 22:47] LABS: AMPHETAMINE SCREEN,URINE NEGATIVE (NEGATIVE); BENZODIAZEPINES SCREEN, URINE NEGATIVE (NEGATIVE); COCAINE SCREEN URINE NEGATIVE (NEGATIVE); METHADONE SCREEN, URINE NEGATIVE (NEGATIVE); METHAMPHETAMINES SCREEN, URINE NEGATIVE (NEGATIVE); OPIATE SCREEN, URINE NEGATIVE (NEGATIVE); OXYCODONE SCREEN, URINE NEGATIVE (NEGATIVE); PROPOXYPHENE SCREEN, URINE NEGATIVE (NEGATIVE); TRICYCLIC ANTIDEPRESSANT,URINE NEGATIVE (NEGATIVE)
--- NOTE | 2018-10-16 23:05 | Ultrasound Report ---
Reason: renal failure Procedure Date: 10/16/2018 Accession Number: [id number] / [id number] Procedure: US - Retroperitoneal CPT Code: FULL RESULT: EXAM: RENAL ULTRASOUND EXAM DATE: 10/16/2018 10:32 PM. CLINICAL HISTORY: Renal failure. COMPARISON: None. TECHNIQUE: Real-time scanning was performed with static images obtained. FINDINGS: Right Kidney: 11.6 x 6.5 x 6.3 cm. Normal echotexture with no stones, contour-deforming masses, or hydronephrosis. Cyst inferiorly 1.3 x 1.7 x 1.4 cm. Left Kidney: 11.8 x 6.1 x 5.9 cm. Normal echotexture with no stones, contour-deforming masses, or hydronephrosis. Bladder: Bilateral jets seen. The prevoid bladder volume was 166 cc. The postvoid bladder volume was 7 cc. Other: None. IMPRESSION: Inferior right renal cyst, otherwise unremarkable renal ultrasound. [facility]
[2018-10-17] MEDS: SODIUM CHLORIDE FLUSH 0.9% 10 ML SYRINGE IVP SCH ×3 (01:08→18:14)
[2018-10-17] MEDS: SODIUM CHLORIDE 0.9% 1,000 ML IV SCH (03:47)
[2018-10-17 05:33] LABS: BASOPHILS # (AUTO) 0.1 10^3/uL (0.0-0.1); BASOPHILS % (AUTO) 0.6 %; EOSINOPHILS # (AUTO) 0.1 10^3/uL (0.0-0.7); EOSINOPHILS % (AUTO) 1.2 %; HGB - HEMOGLOBIN 10.8 g/dL (14.0-18.0); LYMPHOCYTES # (AUTO) 1.8 10^3/uL (1.5-3.5); MEAN CORPUSCULAR HEMOGLOBIN 39.3 pg (27.0-31.0); MEAN CORPUSCULAR HGB CONC 34.6 g/dL (32.0-36.0); MEAN CORPUSCULAR VOLUME 113.7 fL (80.0-94.0); MEAN PLATELET VOLUME 8.2 fL (7.4-11.4); MONOCYTES # (AUTO) 0.7 10^3/uL (0.0-1.0); MONOCYTES % (AUTO) 8.5 %; NEUTROPHILS # (AUTO) 5.5 10^3/uL (1.5-6.6); NEUTROPHILS % (AUTO) 67.7 %; PLT - PLATELET COUNT 197 10^3/uL (130-450); RED BLOOD COUNT 2.75 10^6/uL (4.70-6.10); RED CELL DISTRIBUTION WIDTH 17.7 % (12.0-15.0); WHITE BLOOD COUNT 8.1 x10^3/uL (4.8-10.8)
[2018-10-17 05:42] LABS: ALBUMIN 3.6 g/dL (3.2-5.5); ALBUMIN/GLOBULIN RATIO 1.2 (1.0-2.2); BILIRUBIN,TOTAL 1.2 mg/dL (0.2-1.0); CALCIUM 8.1 mg/dL (8.5-10.3); CREATININE 4.5 mg/dL (0.6-1.2); TOTAL PROTEIN 6.5 g/dL (6.7-8.2)
[2018-10-17] MEDS ORDERED: SODIUM CHLORIDE 0.9% 1,000 ML IV SCH ×2 (07:34→15:02)
[2018-10-17] MEDS: INSULIN ASPART 300 UNIT/3 ML PEN SUBQ SCH ×4 (08:36→20:36)
[2018-10-17] MEDS ORDERED: INSULIN GLARGINE 300 UNIT/3 ML PEN SUBQ SCH ×2 (09:00)
[2018-10-17] MEDS ORDERED: METOPROLOL SUCCINATE 50 MG TABLET PO SCH ×2 (09:00)
[2018-10-17] MEDS ORDERED: AMIODARONE 200 MG TABLET PO SCH ×2 (09:00)
[2018-10-17] MEDS ORDERED: RIVAROXABAN 10 MG TABLET PO SCH (09:00)
[2018-10-17] MEDS ORDERED: NON FORMULARY MED (Rivaroxaban [Xarelto] 20 MG) PO SCH (09:00)
[2018-10-17] MEDS ORDERED: ASPIRIN CHEW 81 MG TABLET PO SCH ×2 (09:00)
[2018-10-17] MEDS ORDERED: POLYETHYLENE GLYCOL 3350 17 GM PACKET PO SCH ×2 (09:00)
[2018-10-17] MEDS ORDERED: NICOTINE 14 MG PATCH TOP SCH (09:00)
--- NOTE | 2018-10-17 15:21 | DISCHARGE SUMMARY ---
Discharge Summary Discharge Date: 10/17/18 Discharging Provider: GOEL Primary Care Provider: BELLE Thomas Condition at Discharge: Stable Discharge Facility Name: - DIAGNOSES Admission Diagnoses: (1) Acute renal failure (2) Atrial fibrillation (3) Congestive heart failure (4) Diabetes (5) Hypokalemia (6) Tobacco dependence (7) Hx of pulmonary embolus (8) Medical non-compliance (9) HTN (hypertension) Discharge Diagnoses with Status of Each Condition: 1) Acute renal failure (2) Atrial fibrillation (3) Congestive heart failure (4) Diabetes (5) Hypokalemia (6) Tobacco dependence (7) Hx of pulmonary embolus (8) Medical non-compliance (9) HTN (hypertension) - HPI History of Present Illness: Mr. Licona is a 48-year-old male with a PMH significant of Congestive heart failure, Hypertension, Coronary artery disease, Deep vein thrombosis, Pulmonary embolism, Atrial fibrillation, CKD stage 2/3 and diabetes, presents to the emergency department complain with "muscle twitching""muscle cramp" for the past 3-4 days. Pt report in the past 4 days, he has difficulty walking and handling things because of "hand tremor," and "muscle twitching." he also report he had v omiting for the past 2 days. He report his blood sugars are well controlled. He report he is not to take his medication according to his medication schedule. pt report He sometime took four pills of Torsemide in the morning then he did not take in the evening, or did not take for next day. he add/reduce the dosage by himself without consulting with medical provider " I messed up". He report he s till had good urination but his urine is very dark on yesterday. He report he still smoke cigarette one pack per day. He denies chest pain, headache, fever, chill, cough, shortness of breath, diarrhea, GI bleeding. Pt's lab reveals his creatinine is 4.5 today from 1.1 at 04/2018. BNP is 171 today. Pt is afebrile, hemodynamic stable in ER. Pt is admitted for acute renal failure. - HOSPITAL COURSE Hospital Course: 1) Acute renal failure creatinine still is 4.5. pt has no improved after hydration. US of retropen, except right kidney cyst, reveals unremarkable. Called , both material man and hospitalist accept pt. pt is transferred to (2) Atrial fibrillation stable, pt is on Metoprolol 200mg daily, and Xarelto (3) Congestive heart failure pt has hx of diastolic heart failure. Hold Torsemide now, continue managed by . BNP is slight up. (4) Diabetes stable (5) Hypokalemia resolved. replaced (6) Tobacco dependence pt current smoke one pack daily (7) Hx of pulmonary embolus stable, on Xarelto (8) Medical non-compliance pt did not take meds as scheduled. advise and consult pt for medical compliance (9) HTN (hypertension) stable. - ALLERGIES Allergies/Adverse Reactions: Allergies Allergy/AdvReac Type Severity Reaction Status Date / Time No Known Drug Allergies Allergy Verified 10/16/18 15:03 - MEDICATIONS Home Medications: Ambulatory Orders Medication Instructions Recorded Confirmed Metoprolol Succinate [Toprol Xl] 200 mg PO DAILY 08/20/16 10/16/18 Aspirin 81 mg PO DAILY 08/14/17 10/16/18 Atorvastatin Calcium 40 mg PO QPM 08/14/17 10/16/18 Gabapentin 900 - 1,200 mg PO QID 08/14/17 10/16/18 Rivaroxaban [Xarelto] 20 mg PO DAILY 10/15/17 10/16/18 Doxycycline Hyclate 100 mg PO BID #14 capsule 05/02/18 10/16/18 Torsemide 30 mg PO DAILY 05/02/18 10/17/18 Amiodarone [Pacerone] 200 mg PO DAILY 05/09/18 10/16/18 Blood Sugar Diagnostic [Glucometer 1 each QID #50 strip 05/10/18 10/16/18 Strips] Blood-Glucose Meter [Glucometer] 1 each QID #1 each 05/10/18 10/16/18 Insulin Glargine [Lantus Solostar] 5 unit SUBQ DAILY #1 pen 05/10/18 10/16/18 Lancets 1 each QID #50 each 05/10/18 10/16/18 Potassium Chloride 30 meq PO DAILY #20 capsule.er 05/10/18 10/16/18 metFORMIN [Glucophage] 850 mg PO BID #20 tablet 05/10/18 10/16/18 - PHYSICAL EXAM AT DISCHARGE General Appearance: positive: No acute distress, Alert. negative: Lethargic Eyes Bilateral: positive: Normal inspection, PERRL, No lid inflammation, Conjun ctivae nml ENT: positive: ENT inspection nml, Pharynx nml, No signs of dehydration. negative: Purulent nasal drainage, Pharyngeal erythema, Oral lesions Neck: positive: Nml inspection, Thyroid nml, No JVD, Trachea midline. negative: Thyromegaly, Lymphadenopathy (L), Stiff neck, Swelling/bruising, Tracheal deviation Respiratory: positive: Chest non-tender, No respiratory distress, Breath sounds nml. negative: Wheezes, Rales, Rhonchi Cardiovascular: positive: No murmur, No gallop. negative: Irregularly irregular, Extrasystoles, Tachycardia, Bradycardia, JVD present, Systolic murmur, Diastolic murmur Peripheral Pulses: positive: 2+ Abdomen: positive: Non-tender, No organomegaly, Nml bowel sounds, No distention. negative: Tenderness, Guarding, Rebound Back: positive: Nml inspection. negative: CVA tenderness (R), CVA tenderness (L) Skin: positive: Color nml, No rash, Warm, Dry. negative: Cyanosis, Diaphoresis, Pallor Extremities: positive: Non-tender, Full ROM, Nml appearance. negative: Calf tenderness, Joint swelling, Brittany's sign/cords Neurologic/Psychiatric: positive: Oriented x3, Motor nml, Sensation nml, Mood/affect nml. negative: Weakness, Sensory loss, Facial droop, Slurred/abnml speech, Depressed mood/affect - LABS Result Diagrams: 10/17/18 05:10 10/17/18 05:10 - SEPSIS Current Stage of Sepsis: Ruled out - FOLLOW UP Follow Up: transfer to for high level of care - TIME SPENT Time Spent in Discharge (Minutes): 55
[2018-10-17 20:10] VITALS: BP 110/89
[2018-10-17] MEDS: FAMOTIDINE 20 MG TABLET PO SCH (20:36)
== END 2018-10-17 21:15 | disposition short-term general hospital (02) | DRG 683 ==
LOC: ED 14:57 → MS2 16:56 → ED 17:35
PROVIDERS: ADMIT Nurse Practitioner Gerontology; ATTEND Nurse Practitioner
DX: N17.9 Acute kidney failure, unspecified (principal); I13.0 Hypertensive heart and chronic kidney disease with heart failure and stage 1 through stage 4 chronic kidney disease, or unspecified chronic kidney disease; I50.9 Heart failure, unspecified; N18.2 Chronic kidney disease, stage 2 (mild); E11.22 Type 2 diabetes mellitus with diabetic chronic kidney disease; E11.65 Type 2 diabetes mellitus with hyperglycemia; I25.10 Atherosclerotic heart disease of native coronary artery without angina pectoris; Z95.5 Presence of coronary angioplasty implant and graft; Z86.718 Personal history of other venous thrombosis and embolism; Z86.711 Personal history of pulmonary embolism; I48.91 Unspecified atrial fibrillation; J44.9 Chronic obstructive pulmonary disease, unspecified; Z79.82 Long term (current) use of aspirin; F17.200 Nicotine dependence, unspecified, uncomplicated; E87.6 Hypokalemia; Z91.19 Patient's noncompliance with other medical treatment and regimen; N28.1 Cyst of kidney, acquired
CPT/HCPCS: 36415; 51798; 76770; 80053; 80306; 80320; 81001; 82009; 82803; 83036; 83690; 83735; 83880; 84100; 84484; 85025; 93306; 94640; 96361; 96374; 99283; A9270; J1815; 87086

== ENCOUNTER 2019-08-07 09:09 | Emergency (ER) | payer OTHER ==
[2019-08-07 10:05] LABS: BASOPHILS # (AUTO) 0.1 10^3/uL (0.0-0.1); BASOPHILS % (AUTO) 0.9 %; EOSINOPHILS # (AUTO) 0.1 10^3/uL (0.0-0.7); HGB - HEMOGLOBIN 11.5 g/dL (14.0-18.0); LYMPHOCYTES # (AUTO) 1.4 10^3/uL (1.5-3.5); LYMPHOCYTES % (AUTO) 25.8 %; MEAN CORPUSCULAR HEMOGLOBIN 33.8 pg (27.0-31.0); MEAN CORPUSCULAR HGB CONC 32.6 g/dL (32.0-36.0); MEAN CORPUSCULAR VOLUME 103.8 fL (80.0-94.0); MEAN PLATELET VOLUME 9.5 fL (7.4-11.4); MONOCYTES # (AUTO) 0.3 10^3/uL (0.0-1.0); MONOCYTES % (AUTO) 5.2 %; NEUTROPHILS # (AUTO) 3.6 10^3/uL (1.5-6.6); NEUTROPHILS % (AUTO) 65.4 %; PLT - PLATELET COUNT 312 10^3/uL (130-450); RED CELL DISTRIBUTION WIDTH 15.7 % (12.0-15.0); WHITE BLOOD COUNT 5.4 x10^3/uL (4.8-10.8)
[2019-08-07 10:17] LABS: ALBUMIN 3.3 g/dL (3.2-5.5); ALBUMIN/GLOBULIN RATIO 0.8 (1.0-2.2); BILIRUBIN,TOTAL 0.4 mg/dL (0.2-1.0); CALCIUM 8.2 mg/dL (8.5-10.3); CREATININE 1.5 mg/dL (0.6-1.2); MAGNESIUM 2.2 mg/dL (1.7-2.8); TOTAL PROTEIN 7.2 g/dL (6.7-8.2)
[2019-08-07 10:20] LABS: INR 2.3 (0.8-1.2)
[2019-08-07] MEDS ORDERED: FUROSEMIDE 100 MG/10 ML VIAL IVP STA (10:21)
[2019-08-07] MEDS ORDERED: POTASSIUM CHLORIDE 20 MEQ TABLET PO STA (10:21)
[2019-08-07 10:25] LABS: BILIRUBIN,URINE NEGATIVE (NEGATIVE); CLARITY,URINE CLEAR (CLEAR); GLUCOSE, URINE (UA) NEGATIVE (NEGATIVE); KETONES,URINE (UA) NEGATIVE (NEGATIVE); LEUKOCYTE ESTERASE, URINE NEGATIVE (NEGATIVE); NITRITE,URINE NEGATIVE (NEGATIVE); OCCULT BLOOD,URINE NEGATIVE (NEGATIVE); PH,URINE 5.5 PH (5.0-7.5); PROTEIN,URINE TRACE mg/dL (NEGATIVE); UROBILINOGEN,URINE 0.2 (NORMAL) E.U./dL (NORMAL)
[2019-08-07] MEDS ORDERED: ONDANSETRON 4 MG/2 ML VIAL IVP STA (10:31)
[2019-08-07] MEDS ORDERED: MORPHINE 10 MG/ML VIAL IVP STA (10:31)
--- NOTE | 2019-08-07 10:34 | ED Physician Documentation ---
History of Present Illness - Stated complaint Stated Complaint: BILAT LEG PX - Chief complaint Chief Complaint: General - History obtained from History obtained from: Patient - History of Present Illness Timing: How many weeks ago (4) - Additonal information Additional information: 48-year-old male with a history of CAD, CHF and DVT with PE who is on Coumadin a nd torsemide has had increased swelling in his lower extremities over the past month. He has been in to see his primary care doctor is been put on some antibiotic for treatment of cellulitis and despite this he has persistence of the swelling and redness to the lower extremities. He has not had fever. He does state that he feels that his torsemide is not working like it used to. He denies any other change in his medication he denies any use of anti- inflammatories. He does admit to alcohol consumption. Review of Systems Constitutional: reports: Fatigue. denies: Fever, Chills Eyes: denies: Decreased vision Ears: denies: Ear pain Nose: denies: Rhinorrhea / runny nose, Congestion Throat: denies: Sore throat Cardiac: reports: Pedal edema, Calf pain. denies: Chest pain / pressure, Palpitations Respiratory: reports: Dyspnea, Cough GI: denies: Nausea, Vomiting : denies: Dysuria PD PAST MEDICAL HISTORY - Past Medical History Past Medical History: Yes Cardiovascular: Congestive heart failure, Hypertension, Coronary artery disease, Deep vein thrombosis, Pulmonary embolism, Atrial fibrillation Respiratory: COPD, Other Neuro: None Endocrine/Autoimmune: None GI: None : None HEENT: None Psych: None Musculoskeletal: None - Past Surgical History Past Surgical History: Yes Ortho: Arthroscopic surgery Cardiovascular: Coronary stent - Present Medications Home Medications: Ambulatory Orders Medication Instructions Recorded Confirmed Metoprolol Succinate [Toprol Xl] 200 mg PO DAILY 08/20/16 10/16/18 Aspirin 81 mg PO DAILY 08/14/17 10/16/18 Atorvastatin Calcium 40 mg PO QPM 08/14/17 10/16/18 Gabapentin 900 - 1,200 mg PO QID 08/14/17 10/16/18 Rivaroxaban [Xarelto] 20 mg PO DAILY 10/15/17 10/16/18 Doxycycline Hyclate 100 mg PO BID #14 capsule 05/02/18 10/16/18 Torsemide 30 mg PO DAILY 05/02/18 10/17/18 Amiodarone [Pacerone] 200 mg PO DAILY 05/09/18 10/16/18 Blood Sugar Diagnostic [Glucometer 1 each QID #50 strip 05/10/18 10/16/18 Strips] Blood-Glucose Meter [Glucometer] 1 each QID #1 each 05/10/18 10/16/18 Insulin Glargine [Lantus Solostar] 5 unit SUBQ DAILY #1 pen 05/10/18 10/16/18 Lancets 1 each QID #50 each 05/10/18 10/16/18 Potassium Chloride 30 meq PO DAILY #20 capsule.er 05/10/18 10/16/18 metFORMIN [Glucophage] 850 mg PO BID #20 tablet 05/10/18 10/16/18 Hydrocodone/Acetaminophen 1 - 2 each PO Q6H PRN #14 tablet 08/07/19 [Hydrocodon-Acetaminophen 5-325] - Allergies Allergies/Adverse Reactions: Allergies Allergy/AdvReac Type Severity Reaction Status Date / Time No Known Drug Allergies Allergy Verified 08/07/19 09:15 - Social History Does the pt smoke?: Yes Smoking Status: Current every day smoker Does the pt drink ETOH?: Yes Does the pt have substance abuse?: No - POLST Patient has POLST: No POLST Status: Full Code PD ED PE NORMAL - Vitals Vital signs reviewed: Yes (Normal) - General General: Alert and oriented X 3, Well developed/nourished, Other (48-year-old male with alcohol on his breath does not appear to be in any form of distress.) - HEENT HEENT: Atraumatic, PERRL, EOMI - Neck Neck: Supple, no meningeal sign - Cardiac Cardiac: No murmur, Other (Irregularly irregular rate and rhythm) - Respiratory Respiratory: No respiratory distress, Clear bilaterally - Abdomen Abdomen: Soft, Non tender - Back Back: No CVA TTP, No spinal TTP - Derm Derm: Normal color, Warm and dry, No rash - Extremities Extremities: Other (There is swelling to both lower extremities that is dense and there is hyperemia consistent with prolonged venous stasis disease with postinflammatory hyperpigmentation present as well. The skin is not blanching.) - Neuro Neuro: Alert and oriented X 3, darkroom technician 2-12 intact, No motor deficit, No sensory deficit, Normal speech Eye Opening: Spontaneous Motor: Obeys Commands Verbal: Oriented GCS Score: 15 - Psych Psych: Normal mood, Normal affect Results - Vitals Vitals: Vital Signs - 24 hr 08/07/19 08/07/19 08/07/19 09:15 10:10 11:00 Temperature 36.5 C Heart Rate 98 81 88 Respiratory 14 14 13 Rate Blood Pressure 106/67 116/71 106/75 O2 Saturation 100 97 94 Oxygen O2 Source Room air - Labs Labs: Laboratory Tests 08/07/19 08/07/19 08/07/19 09:30 09:30 09:30 WBC 5.4 RBC 3.40 L Hgb 11.5 L Hct 35.3 L MCV 103.8 H MCH 33.8 H MCHC 32.6 RDW 15.7 H Plt Count 312 MPV 9.5 Neut # (Auto) 3.6 Lymph # (Auto) 1.4 L [place] # (Auto) 0.3 Eos # (Auto) 0.1 Baso # (Auto) 0.1 Absolute Nucleated RBC 0.00 Nucleated RBC % 0.0 PT 25.0 H INR 2.3 H Sodium 140 Potassium 3.4 L Chloride 99 L Carbon Dioxide 28 Anion Gap 13.0 BUN 11 Creatinine 1.5 H Estimated GFR (MDRD) 50 L Glucose 125 H Lactic Acid Calcium 8.2 L Magnesium 2.2 Total Bilirubin 0.4 AST 11 ALT 13 Alkaline Phosphatase 106 B-Natriuretic Peptide Total Protein 7.2 Albumin 3.3 Globulin 3.9 Albumin/Globulin Ratio 0.8 L Lipase 47 TSH Urine Color Urine Clarity Urine pH Ur Specific [place] Urine Protein Urine Glucose (UA) Urine Ketones Urine Occult Blood Urine Nitrite Urine Bilirubin Urine Urobilinogen Ur Leukocyte Esterase Ur Microscopic Review Urine Culture Comments Ethyl Alcohol 144.6 08/07/19 08/07/19 08/07/19 09:30 09:30 10:12 WBC RBC Hgb Hct MCV MCH MCHC RDW Plt Count MPV Neut # (Auto) Lymph # (Auto) [place] # (Auto) Eos # (Auto) Baso # (Auto) Absolute Nucleated RBC Nucleated RBC % PT INR Sodium Potassium Chloride Carbon Dioxide Anion Gap BUN Creatinine Estimated GFR (MDRD) Glucose Lactic Acid 1.3 Calcium Magnesium Total Bilirubin AST ALT Alkaline Phosphatase B-Natriuretic Peptide 273 H Total Protein Albumin Globulin Albumin/Globulin Ratio Lipase TSH 2.99 Urine Color Urine Clarity Urine pH Ur Specific [place] Urine Protein Urine Glucose (UA) Urine Ketones Urine Occult Blood Urine Nitrite Urine Bilirubin Urine Urobilinogen Ur Leukocyte Esterase Ur Microscopic Review Urine Culture Comments Ethyl Alcohol 08/07/19 10:12 WBC RBC Hgb Hct MCV MCH MCHC RDW Plt Count MPV Neut # (Auto) Lymph # (Auto) [place] # (Auto) Eos # (Auto) Baso # (Auto) Absolute Nucleated RBC Nucleated RBC % PT INR Sodium Potassium Chloride Carbon Dioxide Anion Gap BUN Creatinine Estimated GFR (MDRD) Glucose Lactic Acid Calcium Magnesium Total Bilirubin AST ALT Alkaline Phosphatase B-Natriuretic Peptide Total Protein Albumin Globulin Albumin/Globulin Ratio Lipase TSH Urine Color YELLOW Urine Clarity CLEAR Urine pH 5.5 Ur Specific [place] 1.025 Urine Protein TRACE Urine Glucose (UA) NEGATIVE Urine Ketones NEGATIVE Urine Occult Blood NEGATIVE Urine Nitrite NEGATIVE Urine Bilirubin NEGATIVE Urine Urobilinogen 0.2 (NORMAL) Ur Leukocyte Esterase NEGATIVE Ur Microscopic Review NOT INDICATED Urine Culture Comments NOT INDICATED Ethyl Alcohol Procedures - IVC sono (time) 1000 Bedside IVC sono: IVC measures (cm) (2.5), IVC collapsed c insp (cm) (2.5), High CVP PD MEDICAL DECISION MAKING - ED course Complexity details: reviewed old records, reviewed results, re-evaluated patient, considered differential, d/w patient ED course: 48-year-old male with a history of CHF and peripheral edema has increased peripheral edema and pain to his lower extremities. He has been treated for cellulitis and has come into the emergency department now thinking he may need some IV antibiotic with failure of this. On examination he does not look like he has cellulitis he does have dependent edema and some hyper pigmentation that appears postinflammatory. Interrogation the inferior vena cava shows fluid retention and he is administered intravenous Lasix. He is on torsemide which he has decreased his dose on. He is not certain exactly how much torsemide he takes he takes 3 pills in the morning and 2 in the afternoon and he had previously been on the medication 3 times per day. 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 Here in the emergency department he has improvement in the swelling with the administration of Lasix and his legs are wrapped. I discussed with the patient the issue with dependent edema and have asked him to increase his dose of torsemide, wrap his legs and reduce his time standing during the day. He has an issue with pain and this is not adequately relieved by the use of baclofen and gabapenti. Departure - Departure Disposition: 01 Home, Self Care Clinical Impression: Dependent edema Condition: Stable Instructions: ED Edema Legs Bilateral Follow-Up: Gabrielle Brandt MD [Primary Care Provider] - Prescriptions: Hydrocodone/Acetaminophen [Hydrocodon-Acetaminophen 5-325] 1 - 2 each PO Q6H PRN #14 tablet PRN Reason: pain Comments: Today it appears that the swelling to your lower extremities is not related to cellulitis. Reducing the swelling in your legs will require you to be off of your feet more than you are now and I have recommended you wrap your legs twice per day and increase your dose of torsemide by 1 pill in the morning and 1 pill in the afternoon. Follow-up with Dr. Brandt. We have provided pain medication for temporary use.
[2019-08-07 12:43] VITALS: BP 121/91
== END 2019-08-07 12:45 | disposition home or self-care (01) ==
LOC: ED 09:09
DX: R60.0 Localized edema (principal); M79.662 Pain in left lower leg; M79.661 Pain in right lower leg; L81.9 Disorder of pigmentation, unspecified; I87.8 Other specified disorders of veins; I11.0 Hypertensive heart disease with heart failure; I50.9 Heart failure, unspecified; I25.10 Atherosclerotic heart disease of native coronary artery without angina pectoris; Z95.5 Presence of coronary angioplasty implant and graft; Z86.718 Personal history of other venous thrombosis and embolism; Z86.711 Personal history of pulmonary embolism; Z79.01 Long term (current) use of anticoagulants; Z79.82 Long term (current) use of aspirin; F17.200 Nicotine dependence, unspecified, uncomplicated
CPT/HCPCS: 36415; 80320; 81003; 83605; 83690; 83735; 83880; 84425; 85610; 87040; 96374; 99284; A9270; J1940; 80053; 81001; 84443; 85025; 87086

== ENCOUNTER 2019-09-07 17:18 | Outpatient (CLI) | payer OTHER ==
--- NOTE | 2019-09-08 14:26 | XRAY Report ---
Reason: FOOT AND ANKLE PAIN X 3 YEARS Procedure Date: 09/07/2019 Accession Number: [id number] / [id number] Procedure: XR - Ankle 3 View BILAT CPT Code: Final Report FULL RESULT: EXAMS: 1. Right Foot Radiography 2. Left Foot Radiography 3. Right ankle radiography 4. Left ankle radiography EXAM DATE: 09/07/2019 05:57 PM. CLINICAL HISTORY: FOOT AND ANKLE PAIN X 3 YEARS. COMPARISON: None. TECHNIQUE: 3 views each foot. 3 views of each ankle. FINDINGS: Right: Bones: The right navicular shows abnormal plantar subluxation as well as some cortical irregularity/loss at its medial aspect. The middle and lateral cuneiforms also appear malpositioned. There is chronic posttraumatic deformity at the base of the proximal phalanx of the right fifth toe. There are no lucent or sclerotic lesions. There is a tiny nonspecific Achilles calcaneal enthesophyte. Joints: Plantar subluxation of the navicular. Probable malalignment of the middle and lateral cuneiforms. Otherwise, joint spaces are preserved Soft Tissues: Mild diffuse soft tissue swelling in the foot and ankle. Minimal posterior tibial artery calcification. Left: Bones: Normal. No fractures or bone lesions. There is a tiny nonspecific Achilles calcaneal enthesophyte. Joints: There is some remodeling and flaring at the base of the second proximal phalanx. Otherwise preserved. Soft Tissues: Mild soft tissue calcification projecting over the lateral midfoot on the ankle mortise view. Mild diffuse soft tissue swelling in the foot and ankle. Minimal posterior tibial artery calcification. IMPRESSION: 1. Presumed chronic posttraumatic changes in the right midfoot as described above including abnormality of the scaphoid and probable malalignment of the middle and lateral cuneiforms. Weightbearing films and CT may help in further characterization. 2. Old fracture deformity at the base of the right fifth proximal phalanx. 3. Probable chronic posttraumatic deformity at the base of the left second proximal phalanx. 4. Small soft tissue calcification over the left lateral midfoot which may reflect prior to commit his injury. 5. Mild diffuse soft tissue swelling at the bilateral feet and ankles. RADIA
== END 2019-09-07 17:19 | disposition home or self-care (01) ==
LOC: DI 17:18
PROVIDERS: ATTEND Podiatrist
DX: M25.572 Pain in left ankle and joints of left foot (principal); M25.571 Pain in right ankle and joints of right foot; M25.472 Effusion, left ankle; M25.471 Effusion, right ankle; E11.9 Type 2 diabetes mellitus without complications

== ENCOUNTER 2019-10-02 13:36 | Outpatient (CLI) | payer OTHER ==
--- NOTE | 2019-10-02 16:20 | MRI Report ---
Reason: EXTREME PAIN Procedure Date: 10/02/2019 Accession Number: [id number] / [id number] Procedure: MRI - Foot LT W/O CPT Code: Final Report FULL RESULT: EXAM: LEFT HINDFOOT MRI WITHOUT CONTRAST EXAM DATE: 10/02/2019 02:24 PM. CLINICAL HISTORY: Extreme pain. COMPARISON: 09/07/2019 radiograph. TECHNIQUE: Multiplanar, multisequence T1-weighted and fluid-sensitive sequences of the hindfoot without contrast. Other: None. FINDINGS: Bones: The anterior superior process of the calcaneus is fractured. Overall this is a nonacute appearance with fluid in the cleft and some partial sclerosis. The cuboid has what appears to be a trabecular fracture in the lateral to midportion of the bone (701/16). The anterior lateral portion of the talus has a cortical fracture with erosion, likely nonacute. There is severe subluxation at the anterior subtalar joint with the navicular position laterally relative to the talus. There is prominent marrow edema and low T1 signal in the most of the talus, the anterior half of the calcaneus, the cuboid, the cuneiforms, the bases of the first through third metatarsals and the navicular. Mild osteophyte formation is in the tibiotalar joint. The distal first cuneiform has mild edema and periarticular cyst formation. The distal fibula is edematous and may articulate with a portion of the calcaneus. Articular Cartilage: The tibiotalar joint articular cartilage is moderately thin. Ligaments: The visualized intertarsal, intermetatarsal, and tarsometatarsal ligaments are intact. This includes the Lisfranc ligament. The anterior and posterior tibiofibular, anterior and posterior talofibular, calcaneofibular, and deep and superficial deltoid ligaments are intact. Tendons: The tibialis anterior and extensor hallucis longus tendons are unremarkable. Fluid is in the extensor digitorum tendon sheath. A moderate amount of fluid is in the tibialis posterior tendon sheath. The flexor digitorum longus and flexor hallucis longus tendons are unremarkable. Both peroneal tendons are severely enlarged and contain various degrees of edema. A moderate amount of fluid and debris is seen in the tendon sheath. Achilles tendon is intact. Musculature: No edema or fatty atrophy. Other: Large tibiotalar and subtalar joint effusions are present. Calcified loose bodies are in the anterior tibiotalar joint and the largest measures 1.4 cm. A calcified loose body is at the anterior subtalar joint and it measures up to 1 cm. Synovitis is in both joint spaces. The visualized portion of the tarsal tunnel is unremarkable. The plantar fascia is moderately thickened with some increased T2 signal approximately 4.2 cm from the origin. Edema is in Kager's fat pad. Subcutaneous edema surrounds the ankle. The sinus tarsi is somewhat collapsed and what fat remains has edema on low T1 signal. IMPRESSION: 1. Hindfoot deformity. 2. Nonacute fractures of the anterior calcaneus, distal talus, and cuboid. 3. 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 4. Moderate tenosynovitis of the extensor digitorum longus and tibialis posterior tendon sheath. 5. Severe peroneal tendinitis and moderate tenosynovitis. 6. Moderate midfoot plantar fasciitis. 7. Severe sinus tarsi syndrome. RADIA
--- NOTE | 2019-10-02 16:53 | MRI Report ---
Reason: EXTREME PAIN Procedure Date: 10/02/2019 Accession Number: [id number] / [id number] Procedure: MRI - Foot RT W/O CPT Code: Final Report FULL RESULT: EXAM: RIGHT ANKLE/HINDFOOT MRI WITHOUT CONTRAST EXAM DATE: 10/02/2019 04:15 PM. CLINICAL HISTORY: Increasing pain in a diabetic. COMPARISON: 09/07/2019 radiograph. TECHNIQUE: Multiplanar, multisequence T1-weighted and fluid-sensitive sequences of the ankle/hindfoot without contrast. Other: None. FINDINGS: Bones: The patient is a complete midfoot dislocation. The navicular is extruded medially rotated medially by 90 degrees. The cuboid is inferior medially dislocated relative to the fourth and fifth metatarsals by one complete shaft width. The anterior talus articulates with the second cuneiform. There is extensive marrow edema within the midfoot bones, the bases of the metatarsals, the anterior third of the calcaneus, the anterior half of the talus. A small amount of marrow edema is also in the distal fibula. There appears to be a small nondisplaced fracture of the superior medial portion of the cuboid on series 601, image 17, likely chronic. Mild tibiotalar joint osteophyte formation is present. Articular Cartilage: Severe cartilage loss is in all of the midfoot joints. There is mild cartilage thinning in the tibiotalar joint. Ligaments: The anterior and posterior tibiofibular, posterior talofibular, calcaneofibular ligaments are intact. Calcification within the anterior talofibular ligament indicates prior injury to that structure. The deep and superficial deltoid and spring ligaments are intact. Anterior Tendons: The tibialis anterior, extensor hallucis longus, and extensor digitorum longus tendons are unremarkable. Medial Tendons: A mild amount of fluid is in the tibialis posterior tendon sheath. The flexor digitorum longus and flexor hallucis longus tendons are unremarkable. Lateral Tendons: The peroneus brevis and longus tendons are moderately thickened with increased T2 signal. There is moderate amount of fluid in the peroneal tendon sheath. Achilles Tendon: Mild Achilles tendinosis is present and there is calcific enthesopathy of the distal insertion. Musculature: Muscular edema and mild fatty atrophy in the midfoot is likely denervation injury. Other: Amount of fluid is in the first tarsometatarsal joint. A prominent amount of fluid and synovitis is in the anterior subtalar joint. Mild tibiotalar effusion is accompanied by calcified posterior loose body that measures 7 mm. Edema in Kager's fat pad. Subcutaneous edema surrounds the ankle. No plantar fasciitis. The sinus tarsi is somewhat collapsed and there is edema in the fat. IMPRESSION: 1. Complete midfoot dislocation. The navicular is extruded medially and the cuboid is dislocated inferiorly. 2. Chronic appearing nondisplaced fracture of the superior medial portion of the cuboid. 3. Severe Charcot joint. 4. Mild tenosynovitis of the tibialis posterior tendon sheath. 5. Moderate tendinosis and tenosynovitis of the peroneal tendons. 6. Mild Achilles tendinosis. 7. Moderate sinus tarsi syndrome. RADIA
== END 2019-10-02 13:37 | disposition home or self-care (01) ==
LOC: DI 13:36
PROVIDERS: ATTEND Podiatrist
DX: M21.6X2 Other acquired deformities of left foot (principal); M19.072 Primary osteoarthritis, left ankle and foot; M65.872 Other synovitis and tenosynovitis, left ankle and foot; M72.2 Plantar fascial fibromatosis; S93.304A Unspecified dislocation of right foot, initial encounter; S92.214A Nondisplaced fracture of cuboid bone of right foot, initial encounter for closed fracture; E11.610 Type 2 diabetes mellitus with diabetic neuropathic arthropathy; M65.9 Synovitis and tenosynovitis, unspecified

== ENCOUNTER 2020-01-02 10:30 | Outpatient (CLI) | payer OTHER ==
--- NOTE | 2020-01-02 12:17 | XRAY Report ---
PROCEDURE: Foot 3 View LT INDICATIONS: INFECTED WOUND NEAR MEDIAL MALLEOLUS TECHNIQUE: 4 views of the foot were acquired. COMPARISON: MRI left foot dated 10/02/2019 and 09/07/2019 FINDINGS: Bones: Interval development of severe deformity of the left hindfoot with apparent medial dislocatio n of the talus. There are severe degenerative changes at the talonavicular joint. Moderate degenerati ve changes of the first and second metatarsophalangeal joints. These appear relatively stable compare to August examination. Persistent osteopenia involving the head of the fifth metatarsal. There ar e apparent subchondral lucencies and possible osseous fragments involving the talus. There is also mi ld cortical erosion of the talus. There is moderate overlying soft tissue edema with possible defect over the medial most margin of the skin. No definite acute fracture seen. No fractures or dislocation s. No suspicious bony lesions. Soft tissues: No tibiotalar joint effusion. Achilles tendon appears normal. IMPRESSION: Interval development of severe left hindfoot deformities with apparent medial dislocation of the talu s relative to the tibia and midfoot. There is suggestion of osseous erosions and possible cortical di sruption of the dislocated talus. There is moderate overlying edema with suggestion of overlying skin defect. Findings are suspicious for underlying osteomyelitis. Persistent background degenerative changes of the left forefoot. Reviewed by: Siva Conway MD on 01/02/2020 12:16 PM PDT Approved by: Siva Conway MD on 01/02/2020 12:16 PM PDT Station ID: [id number]
== END 2020-01-02 10:31 | disposition home or self-care (01) ==
LOC: DI 10:30
PROVIDERS: ATTEND Internal Medicine
DX: R93.6 Abnormal findings on diagnostic imaging of limbs (principal); R60.0 Localized edema

== ENCOUNTER 2020-01-02 13:07 | Emergency (ER) | payer OTHER ==
--- NOTE | 2020-01-02 13:40 | ED Physician Documentation ---
PD HPI LOWER EXT INJURY - Stated complaint Stated Complaint: BILAT LEG WOUNDS - Chief complaint Chief Complaint: Ext Problem - History obtained from History obtained from: Patient - History of Present Illness PD HPI LOW EXT INJURY LOCATION: Left, Ankle, Foot Type of injury: Other (The patient has had a Charcot foot deformity of both feet and ankles progressive over's several months or more. He had displacement of the left foot laterally couple of weeks ago and has been walking on the subcutaneous bone stump left and not really on the bottom of his foot. Now skin erosion/red). No: Fall, Twist Timing - onset: Other (Pain and some deformity of the foot for a longer time. Displacement of the left foot laterally over just a couple of weeks and now skin erosion and breakdown for just 2 to 3 days with redness and swelling) Timing - details: Gradual onset (with much worse the past few days with skin erosion, redness, swelling, pain) Worsened by: Moving, Palpating, Other (he has been walking on foot with use of crutches as well.) Associated symptoms: Swelling, Discolored (redness). No: Weakness, Numbness Recently seen: Clinic (PMD regarding pain meds and oral abx. Sees [facility] and trying to get Ortho for surgical correction.) Review of Systems Constitutional: denies: Fever, Chills Nose: denies: Rhinorrhea / runny nose, Congestion Throat: denies: Sore throat Respiratory: denies: Cough GI: denies: Nausea, Vomiting, Diarrhea Neurologic: denies: Focal weakness, Numbness PD PAST MEDICAL HISTORY - Past Medical History Cardiovascular: Congestive heart failure, Hypertension, Coronary artery disease, Deep vein thrombosis, Pulmonary embolism, Atrial fibrillation Respiratory: COPD, Other Neuro: Peripheral neuropathy Endocrine/Autoimmune: Type 2 diabetes GI: None : None HEENT: None Psych: None, Claustrophobia Musculoskeletal: Other Derm: Other Other Past Medical History: charcot foot - Past Surgical History Past Surgical History: Yes Ortho: Arthroscopic surgery Cardiovascular: Coronary stent - Present Medications Home Medications: Ambulatory Orders Medication Instructions Recorded Confirmed Metoprolol Succinate [Toprol Xl] 200 mg PO DAILY 08/20/16 10/16/18 Aspirin 81 mg PO DAILY 08/14/17 10/16/18 Atorvastatin Calcium 40 mg PO QPM 08/14/17 10/16/18 Gabapentin 900 - 1,200 mg PO QID 08/14/17 10/16/18 Rivaroxaban [Xarelto] 20 mg PO DAILY 10/15/17 10/16/18 Doxycycline Hyclate 100 mg PO BID #14 capsule 05/02/18 10/16/18 Torsemide 30 mg PO DAILY 05/02/18 10/17/18 Amiodarone [Pacerone] 200 mg PO DAILY 05/09/18 10/16/18 Blood Sugar Diagnostic [Glucometer 1 each MC QID #50 strip 05/10/18 10/16/18 Strips] Blood-Glucose Meter [Glucometer] 1 each MC QID #1 each 05/10/18 10/16/18 Insulin Glargine [Lantus Solostar] 5 unit SUBQ DAILY #1 pen 05/10/18 10/16/18 Lancets 1 each MC QID #50 each 05/10/18 10/16/18 Potassium Chloride 30 meq PO DAILY #20 capsule.er 05/10/18 10/16/18 metFORMIN [Glucophage] 850 mg PO BID #20 tablet 05/10/18 10/16/18 Hydrocodone/Acetaminophen 1 - 2 each PO Q6H PRN #14 tablet 08/07/19 [Hydrocodon-Acetaminophen 5-325] Oxycodone HCl/Acetaminophen 1 - 2 each PO Q6H PRN #14 tablet 01/02/20 [Percocet 5-325 mg Tablet] - Allergies Allergies/Adverse Reactions: Allergies Allergy/AdvReac Type Severity Reaction Status Date / Time No Known Drug Allergies Allergy Verified 08/07/19 09:15 - Social History Does the pt smoke?: Yes Smoking Status: Current every day smoker Does the pt drink ETOH?: No Does the pt have substance abuse?: No Substance Use and Type: Marijuana - POLST Patient has POLST: No POLST Status: Full Code PD ED PE NORMAL - Vitals Vital signs reviewed: Yes - General General: Alert and oriented X 3, Well developed/nourished - Cardiac Cardiac: RRR, No murmur - Respiratory Respiratory: Clear bilaterally - Abdomen Abdomen: Soft, Non tender - Derm Derm: Normal color, Warm and dry, Other (redness, swelling, tender and some fluctuance felt in calcaneal soft tissue and proximal foot. No calf swelling. ) - Extremities Extremities: Other (The right foot shows a mild skin erosion on the plantar aspect. There is no redness nor purulent drainage. There is some tenderness along the proximal foot without any obvious deformity. The left foot shows a lateral displacement of the midfoot and there is bone visible thru skin erosione) - Neuro Neuro: Alert and oriented X 3, No motor deficit Results - Vitals Vitals: Vital Signs - 24 hr 01/02/20 01/02/20 01/02/20 13:15 13:34 14:45 Temperature 36.5 C 37.9 C H Heart Rate 75 73 71 Respiratory 16 16 14 Rate Blood Pressure 109/62 117/65 109/61 O2 Saturation 98 97 97 01/02/20 01/02/20 16:56 18:00 Temperature 37.3 C Heart Rate 78 72 Respiratory 14 14 Rate Blood Pressure 95/57 L 108/66 O2 Saturation 100 99 Oxygen O2 Source Room air - Labs Labs: Laboratory Tests 01/02/20 01/02/20 01/02/20 14:53 14:53 14:53 WBC 12.4 H RBC 3.56 L Hgb 11.6 L Hct 35.1 L MCV 98.6 H MCH 32.6 H MCHC 33.0 RDW 20.8 H Plt Count 379 MPV 10.1 Neut # (Auto) 10.0 H Lymph # (Auto) 1.1 L [place] # (Auto) 1.0 Eos # (Auto) 0.2 Baso # (Auto) 0.1 Absolute Nucleated RBC 0.00 Nucleated RBC % 0.0 Manual Slide Review Indicated WBC Morphology NORMAL APPEARANCE Platelet Estimate NORMAL (130-450,000) Platelet Morphology Y RBC Morph Micro Appear 1+ ANISOCYTOSIS ESR 85 H Sodium 132 L Potassium 2.5 L* Chloride 86 L Carbon Dioxide 32 Anion Gap 14.0 H BUN 28 H Creatinine 2.0 H Estimated GFR (MDRD) 35 L Glucose 136 H Lactic Acid Calcium 9.2 Magnesium 2.0 Total Bilirubin 1.1 H AST 35 ALT 24 Alkaline Phosphatase 156 H Total Creatine Kinase 27 Total Protein 8.9 H Albumin 3.7 Globulin 5.2 H Albumin/Globulin Ratio 0.7 L Lipase 34 01/02/20 14:53 WBC RBC Hgb Hct MCV MCH MCHC RDW Plt Count MPV Neut # (Auto) Lymph # (Auto) [place] # (Auto) Eos # (Auto) Baso # (Auto) Absolute Nucleated RBC Nucleated RBC % Manual Slide Review WBC Morphology Platelet Estimate Platelet Morphology RBC Morph Micro Appear ESR Sodium Potassium Chloride Carbon Dioxide Anion Gap BUN Creatinine Estimated GFR (MDRD) Glucose Lactic Acid 1.1 Calcium Magnesium Total Bilirubin AST ALT Alkaline Phosphatase Total Creatine Kinase Total Protein Albumin Globulin Albumin/Globulin Ratio Lipase - Rads (name of study) Foot x-ray and CT scan Radiology: Prelim report reviewed, See rad report (Charcot foot with erosion through the talus and lateral displacement of the distal segment. Cellulitic changes of the soft tissue and some early fluctuant fluid-filled areas consistent with early abscesses.Likely osteomyelitis) PD MEDICAL DECISION MAKING - ED course Complexity details: re-evaluated patient (Patient states he needs to take care of his dogs first and does not accept transfer at this time. His condition is not really appropriate for our hospital at this point in any way he wants to go home to arrange care of his dogs and work.), considered differential (The patient has obvious down of the talus with displacement and dislocation of the fragment. He has erosion of the skin with now being open with cellulitis and early abscess), d/w patient ED course: The patient is given IV antibiotics here along with some pain medicine. He would concerning [place] be at risk for sepsis and definitely is already having signs of osteomyelitis on the CT scan and early abscess formation. I think he is best served by being treated inpatient and transfer to a larger facility. He states he needs to take care of his dogs and get around arranged someone to take care of them. He is aware he likely would be in the hospital for days or week or more and so once things settled. He states he will return tomorrow for repeat IV antibiotic doses and arrangement for transfer. He is placed in a splint. He states he has crutches in the car. Departure - Departure Disposition: Against Medical Advice Clinical Impression: Cellulitis of foot associated with diabetes mellitus, Charcot foot due to diabetes mellitus Osteomyelitis Qualifiers: Osteomyelitis type: unspecified type Osteomyelitis location: foot Laterality: left Qualified Code(s): M86.9 - Osteomyelitis, unspecified Condition: Stable Follow-Up: Gabrielle Brandt MD [Primary Care Provider] - Prescriptions: Oxycodone HCl/Acetaminophen [Percocet 5-325 mg Tablet] 1 - 2 each PO Q6H PRN #14 tablet PRN Reason: pain Comments: Return to the ER tomorrow when you have your dog care straightened out and such. At that point we can give another dose of IV antibiotics and arrange transfer to a larger facility, likely [facility], regarding more definitive care of your foot infection and deformity Discharge Date/Time: 01/02/20 18:20
[2020-01-02] MEDS ORDERED: cefTRIAXone 1 GM VIAL IVP STA (14:39)
[2020-01-02] MEDS ORDERED: SODIUM CHLORIDE 0.9% 1,000 ML IV STA (14:39)
[2020-01-02] MEDS ORDERED: VANCOMYCIN INJ 1.5 GM in SODIUM CHLORIDE 0.9% 500 ML IV STA (14:40)
[2020-01-02] MEDS ORDERED: HYDROmorphone 1 MG/ML CARPUJECT IVP STA (14:41)
[2020-01-02] MEDS ORDERED: KETOROLAC 30 MG/ML VIAL IVP STA (14:43)
[2020-01-02] MEDS ORDERED: IOVERSOL 320 100 ML VIAL IVP ONE ×2 (14:54→16:18)
[2020-01-02 14:59] LABS: BASOPHILS # (AUTO) 0.1 10^3/uL (0.0-0.1); BASOPHILS % (AUTO) 0.4 %; EOSINOPHILS # (AUTO) 0.2 10^3/uL (0.0-0.7); EOSINOPHILS % (AUTO) 1.2 %; HGB - HEMOGLOBIN 11.6 g/dL (14.0-18.0); LYMPHOCYTES # (AUTO) 1.1 10^3/uL (1.5-3.5); LYMPHOCYTES % (AUTO) 8.7 %; MEAN CORPUSCULAR HEMOGLOBIN 32.6 pg (27.0-31.0); MEAN CORPUSCULAR VOLUME 98.6 fL (80.0-94.0); MEAN PLATELET VOLUME 10.1 fL (7.4-11.4); MONOCYTES % (AUTO) 8.1 %; NEUTROPHILS % (AUTO) 81.1 %; PLT - PLATELET COUNT 379 10^3/uL (130-450); RED BLOOD COUNT 3.56 10^6/uL (4.70-6.10); RED CELL DISTRIBUTION WIDTH 20.8 % (12.0-15.0); WHITE BLOOD COUNT 12.4 x10^3/uL (4.8-10.8)
[2020-01-02 15:11] LABS: PLATELET ESTIMATE, MANUAL NORMAL (130-450,000) (NORMAL); PLATELET MORPHOLOGY Y (NORMAL); RBC MORPHOLOGY (MULTIPLE) 1+ ANISOCYTOSIS (NORMAL)
[2020-01-02 15:22] LABS: ALBUMIN 3.7 g/dL (3.2-5.5); ALBUMIN/GLOBULIN RATIO 0.7 (1.0-2.2); BILIRUBIN,TOTAL 1.1 mg/dL (0.2-1.0); CALCIUM 9.2 mg/dL (8.5-10.3); TOTAL PROTEIN 8.9 g/dL (6.7-8.2)
[2020-01-02] MEDS ORDERED: POTASSIUM CHLOR 10 MEQ/100 ML 10 MEQ/100 ML BAG IV ONE (15:49)
--- NOTE | 2020-01-02 16:46 | CT Report ---
PROCEDURE: LOWER EXTREMITY W - LT INDICATIONS: ankle and foot deformity/redness (Charcot foot) TECHNIQUE: After infusion of IV contrast, 3 mm axial sections acquired from above the tibiotalar joint to the toni ttom of the calcaneus, with coronal and sagittal reformats. COMPARISON: MRI of left foot/ankle dated 10/02/2019. Left foot radiograph dated 01/02/2020. Bilateral ankle and foot radiograph dated 09/07/2019. FINDINGS: Image quality: Excellent. Bones: There is no focal collapse with lateral subluxation/dislocation at subtalar joint, inferior d islocation/subluxation at talonavicular joint and inferior subluxation at the calcaneocuboid joint. F ragmented appearance involving superior anterior calcaneus adjacent to calcaneocuboid joint suggestiv e of subacute injury in this region. Osteoarthritic changes are noted throughout rest of the ankle an d foot joints. Old fracture involving tip of medial malleolus is seen with corticated fragments. Comp lete disruption of ankle mortise is noted. There is also widening of distal tibiofibular syndesmosis. Soft tissues: Marked soft tissue swelling around ankle, hindfoot and midfoot joints are seen. There is full-thickness ulceration involving the plantar and medial aspect of hindfoot at the level of infe rior medial talus with exposed bony fragment. No discrete abscess collection is identified. Complex a ppearing fluid collection in posterior lateral aspect of ankle/hindfoot posterior to the distal fibul ar shaft and superior to the mid calcaneus with mild peripheral contrast enhancement concerning for a bscess collection in this area and measures up to 2.7 x 2.6 x 1.8 cm in size. Additional small fluid collections are also noted in soft tissue posterior to the tibiotalar joint and measures up to 1.2 x 0.8 x 2.6 cm in size. IMPRESSION: 1. Marked deformity and subluxation involving subtalar joint, talonavicular joint and calcaneocuboid joint as described above, suggestive of Charcot's arthropathy. 2. Chronic appearing fracture involving tip of medial malleolus and superior anterior aspect of calca neus with well corticated bony fragments. 3. Full-thickness ulceration involving plantar and medial aspect of hindfoot with fragmented appearan ce of plantar and medial talus and subtle underlying bony erosions suggestive of osteomyelitis involv ing the talus. Additional area of osteomyelitis cannot be entirely excluded particularly in the media l aspect of navicular bone and anterior superior calcaneus. 4. Extensive cellulitis within ankle, hindfoot and midfoot is seen with marked soft tissue swelling. Ill-defined peripherally enhancing fluid collections seen in posterior aspect of ankle/hindfoot soft tissue as described in detail above measures up to 2.7 x 2.6 x 1.8 cm in size concerning for developi ng abscess collection. Reviewed by: Deep Reyes MD on 01/02/2020 4:45 PM PDT Approved by: Deep Reyes MD on 01/02/2020 4:45 PM PDT Station ID: [id number]
[2020-01-02 18:10] VITALS: BP 108/66
== END 2020-01-02 18:20 | disposition left against medical advice (07) ==
LOC: ED 13:07
DX: E11.610 Type 2 diabetes mellitus with diabetic neuropathic arthropathy (principal); M86.8X7 Other osteomyelitis, ankle and foot; E11.621 Type 2 diabetes mellitus with foot ulcer; L97.429 Non-pressure chronic ulcer of left heel and midfoot with unspecified severity; L03.116 Cellulitis of left lower limb; L02.612 Cutaneous abscess of left foot; E11.42 Type 2 diabetes mellitus with diabetic polyneuropathy; Z79.4 Long term (current) use of insulin; I10 Essential (primary) hypertension; Z86.718 Personal history of other venous thrombosis and embolism; Z79.01 Long term (current) use of anticoagulants; Z79.82 Long term (current) use of aspirin; F17.200 Nicotine dependence, unspecified, uncomplicated; Z53.29 Procedure and treatment not carried out because of patient's decision for other reasons
CPT/HCPCS: 36415; 73701; 80053; 82550; 83605; 83690; 83735; 85025; 85651; 96365; 96375; 99284; 99285; J1170; J3370; Q9967

== ENCOUNTER 2021-09-25 08:00 | Outpatient (CLI) | payer MEDICAID, OTHER ==
[2021-09-25 20:35] LABS: ESTIMATED AVERAGE GLUCOSE 209 mg/dL (70-100); HEMOGLOBIN A1c% 8.9 % (4.27-6.07)
== END 2021-09-25 23:59 ==
LOC: LAB.R 08:00
PROVIDERS: ATTEND Internal Medicine
DX: E11.9 Type 2 diabetes mellitus without complications (principal)
CPT/HCPCS: 83036